=== PATIENT | female | born 1945 | race Caucasian/White ===

== ENCOUNTER → 2017-06-22 | Outpatient (CLI) | payer MEDICARE, BC ==
[~2017-06-22] MED LIST: CLOP75 PO; Crestor40 MG PO; HYDR-86; LOSA50 PO; POTCHL10ER PO; TRAM50 PO
[2017-06-22 14:49] LABS: Thyroid Stimulating Hormone 2.651 uIU/mL (0.360-4.800)
[2017-06-22 15:25] LABS: Troponin I <0.017 ng/mL (0.000-0.040)
== END | disposition home or self-care (01) ==
LOC: LAB EV 14:26
PROVIDERS: Physician Assistant Medical
DX: R00.2 Palpitations (principal)
CPT/HCPCS: 84443; 84484

== ENCOUNTER → 2017-10-11 | Outpatient (CLI) | payer MEDICARE, BC | END | disposition home or self-care (01) | LOC: LAB EV 14:36 → LAB SHORT 14:36 | DX: N30.01 Acute cystitis with hematuria (principal) | CPT/HCPCS: 87077; 87086; 87186 ==

== ENCOUNTER → 2018-07-11 | Outpatient (CLI) | payer MEDICARE, BC | END | disposition home or self-care (01) | LOC: LAB SHORT 08:25 → PLD 08:25 | DX: D48.5 Neoplasm of uncertain behavior of skin (principal) | CPT/HCPCS: 88305 ==

== ENCOUNTER → 2018-07-17 | Outpatient (CLI) | payer MEDICARE, BC ==
[2018-07-17 14:47] LABS: Anion Gap 9 mmol/L (6-16); Blood Urea Nitrogen 18 mg/dL (8-24); Bun/Creatinine Ratio 23.7 (12.0-20.0); CO2, Blood 29 mmol/L (21-32); Calcium, Blood 9.1 mg/dL (8.5-10.1); Chloride, Blood 92 mmol/L (98-108); Creatinine, Blood 0.76 mg/dL (0.40-1.00); Glomerular Filtration Rate >60 (60-); Glucose, Blood 95 mg/dL (70-99); Potassium, Blood 4.6 mmol/L (3.5-5.5); Sodium, Blood 130 mmol/L (136-145)
== END ==
LOC: LAB EV 14:37 → LAB SHORT 14:37
PROVIDERS: Emergency Medicine
DX: R60.9 Edema, unspecified (principal)
CPT/HCPCS: 80048

== ENCOUNTER → 2018-07-21 | Outpatient (CLI) | payer MEDICARE, BC ==
[2018-07-21 14:51] LABS: BASOPHILS ABSOLUTE AUTO 0.04 K/mm3 (0.00-0.23); BASOPHILS PERCENT AUTO 1 % (0-2); EOSINOPHILS ABSOLUTE AUTO 0.14 K/mm3 (0.00-0.68); EOSINOPHILS PERCENT AUTO 2 % (0-6); Hematocrit 33.8 % (33.0-51.0); Hemoglobin 11.3 g/dL (11.5-16.0); IMMATURE GRAN ABSOLUTE AUTO 0.03 K/mm3 (0.00-0.10); IMMATURE GRAN PERCENT AUTO 0 % (0-1); LYMPHOCYTES ABSOLUTE AUTO 1.43 K/mm3 (0.84-5.20); LYMPHOCYTES PERCENT AUTO 20 % (21-46); MONOCYTES ABSOLUTE AUTO 0.74 K/mm3 (0.16-1.47); MONOCYTES PERCENT AUTO 10 % (4-13); Mean Corpuscular HGB 29.1 pg (26.0-34.0); Mean Corpuscular HGB Conc 33.4 g/dL (31.5-36.5); Mean Corpuscular Volume 87 fL (80-100); Mean Platelet Volume 9.3 fL (9.1-12.4); NEUTROPHILS ABSOLUTE AUTO 4.82 K/mm3 (1.96-9.15); NEUTROPHILS PERCENT AUTO 67 % (41-73); Platelet Count 274 K/mm3 (150-400); RDW Standard Deviation 41.1 fL (35.1-46.3); Red Blood Cell Count 3.88 M/mm3 (3.80-5.20)
[2018-07-21 15:08] LABS: Alanine Aminotransfer (ALT/SGP 26 U/L (12-78); Albumin, Blood 4.4 g/dL (3.4-5.0); Albumin/Globulin Ratio 1.4 (0.8-1.8); Alk Phos 68 U/L (40-126); Anion Gap 7 mmol/L (6-16); Aspartate Aminotrans (AST/SGOT 25 U/L (12-37); Bilirubin, Total 0.6 mg/dL (0.1-1.0); Blood Urea Nitrogen 21 mg/dL (8-24); Bun/Creatinine Ratio 30.9 (12.0-20.0); CO2, Blood 30 mmol/L (21-32); Calcium, Blood 9.2 mg/dL (8.5-10.1); Chloride, Blood 88 mmol/L (98-108); Creatinine, Blood 0.68 mg/dL (0.40-1.00); Globulin, Blood 3.2 g/dL (2.2-4.0); Glomerular Filtration Rate >60 (60-); Glucose, Blood 100 mg/dL (70-99); Potassium, Blood 4.6 mmol/L (3.5-5.5); Sodium, Blood 125 mmol/L (136-145); Total Protein, Blood 7.6 g/dL (6.4-8.2)
== END | disposition home or self-care (01) ==
LOC: LAB SHORT 14:46 → LAB EV 14:46
PROVIDERS: Physician Assistant Surgical
DX: R60.9 Edema, unspecified (principal)
CPT/HCPCS: 80053; 83880; 85025; 85651

== ENCOUNTER 2019-02-04 15:53 | Emergency (ER) | payer MEDICARE, BC ==
[~2019-02-04] VITALS: Ht 157.5 cm; Wt 72.6 kg
[~2019-02-04 15:53] MED LIST changes: +ASPI81CH PO; +ATOR40TA PO; +FLUT1DIS5 INH; +FURO20 PO; +NEBI5 PO; +SPIR25 PO
[2019-02-04 16:30] LABS: BASOPHILS ABSOLUTE AUTO 0.04 K/mm3 (0.00-0.23); BASOPHILS PERCENT AUTO 1 % (0-2); EOSINOPHILS PERCENT AUTO 2 % (0-6); Hematocrit 38.2 % (33.0-51.0); Hemoglobin 12.5 g/dL (11.5-16.0); IMMATURE GRAN ABSOLUTE AUTO 0.02 K/mm3 (0.00-0.10); IMMATURE GRAN PERCENT AUTO 0 % (0-1); LYMPHOCYTES ABSOLUTE AUTO 1.66 K/mm3 (0.84-5.20); LYMPHOCYTES PERCENT AUTO 26 % (21-46); MONOCYTES ABSOLUTE AUTO 0.56 K/mm3 (0.16-1.47); MONOCYTES PERCENT AUTO 9 % (4-13); Mean Corpuscular HGB 28.9 pg (26.0-34.0); Mean Corpuscular HGB Conc 32.7 g/dL (31.5-36.5); Mean Corpuscular Volume 88 fL (80-100); Mean Platelet Volume 9.6 fL (9.1-12.4); NEUTROPHILS ABSOLUTE AUTO 4.08 K/mm3 (1.96-9.15); NEUTROPHILS PERCENT AUTO 63 % (41-73); Platelet Count 249 K/mm3 (150-400); RDW Standard Deviation 42.3 fL (35.1-46.3); Red Blood Cell Count 4.33 M/mm3 (3.80-5.20); White Blood Cell Count 6.46 K/mm3 (4.00-11.30)
[2019-02-04 16:49] LABS: Alanine Aminotransfer (ALT/SGP 25 U/L (12-78); Albumin, Blood 4.3 g/dL (3.4-5.0); Albumin/Globulin Ratio 1.3 (0.8-1.8); Alk Phos 68 U/L (50-136); Anion Gap 5 mmol/L (6-16); Aspartate Aminotrans (AST/SGOT 21 U/L (12-37); Bilirubin, Total 0.7 mg/dL (0.1-1.0); Blood Urea Nitrogen 15 mg/dL (8-24); Bun/Creatinine Ratio 23.7 (12.0-20.0); CO2, Blood 28 mmol/L (21-32); Calcium, Blood 9.6 mg/dL (8.5-10.1); Chloride, Blood 101 mmol/L (98-108); Creatinine, Blood 0.63 mg/dL (0.40-1.00); Globulin, Blood 3.2 g/dL (2.2-4.0); Glomerular Filtration Rate >60 (60-); Glucose, Blood 94 mg/dL (70-99); Potassium, Blood 3.8 mmol/L (3.5-5.5); Sodium, Blood 134 mmol/L (136-145); Total Protein, Blood 7.5 g/dL (6.4-8.2)
[2019-02-04 16:55] LABS: Troponin I <0.015 ng/mL (0.000-0.040)
[2019-02-04] MEDS ORDERED: MOTION RELIEF25 MG PO (16:58)
[2019-02-04 17:29] LABS: Source, Urine Clean Catch
[2019-02-04 17:37] LABS: Bilirubin, Urine Neg (Neg); Blood, Urine 1+ (Neg); Glucose Qualitative, Urine Neg (Neg); Ketones, Urine Neg (Neg); Leukocyte Esterase, Urine 1+ (Neg); Nitrite, Urine Neg (Neg); Protein, Urine Neg (Neg); Urobilinogen, Urine NORM (Normal)
[2019-02-04 17:48] LABS: Appearance, Urine Clear (Clear); Color, Urine Yellow (P-Yellow)
[2019-02-04 17:49] LABS: Bacteria Few /hpf; Red Blood Cells, Urine 0-2 /hpf (0-2); Squamous Epithelial Cells Rare /hpf (Few)
[2019-02-13] MEDS ORDERED: Aspir 8181 MG PO (09:45)
[2019-02-13] MEDS ORDERED: Norvasc5 MG PO (09:46)
[2019-02-13] MEDS ORDERED: METO25ER PO (09:47)
== END 2019-02-04 18:36 | disposition home or self-care (01) ==
LOC: ER 15:53
PROVIDERS: Emergency Medicine; Physician Assistant
DX: R42 Dizziness and giddiness (principal); H55.00 Unspecified nystagmus; Z88.0 Allergy status to penicillin; Z88.2 Allergy status to sulfonamides; Z88.5 Allergy status to narcotic agent; Z79.899 Other long term (current) drug therapy; Z79.82 Long term (current) use of aspirin
CPT/HCPCS: 70450; 80053; 81001; 83735; 84484; 85025; 87086; 93005; 93010; 99284-25

== ENCOUNTER 2019-02-20 09:20 | Day surgery (SDC) | payer MEDICARE, BC ==
[~2019-02-20] VITALS: Ht 157.5 cm; Wt 70.2 kg
[~2019-02-20 09:20] MED LIST changes: +Aspir 8181 MG PO; +METO25ER PO; +MOTION RELIEF25 MG PO; +Norvasc5 MG PO
--- NOTE | 2019-02-20 10:06 | NUR ---
02/20/19 1006 Socorro Zhang 1 ATTEMP , VEIN BLEW 2 ATTEMP AC GOOD :(
--- NOTE | 2019-02-20 13:19 | NUR ---
02/20/19 1319 Herb King DISCHARGE TEACHING REVIEWED WITH PT. PT TOLERATING PO FLUIDS WELL, VSS. ALL QUESTIONS ANSWERED.
== END 2019-02-20 11:50 | disposition home or self-care (01) ==
LOC: ORSCSDS 09:20
PROVIDERS: Internal Medicine Gastroenterology
PROC: 0DB68ZX Excision of Stomach, Via Natural or Artificial Opening Endoscopic, Diagnostic (ICD-10-PCS; principal; 2019-02-20 10:45)
PROC: 0DBN8ZX Excision of Sigmoid Colon, Via Natural or Artificial Opening Endoscopic, Diagnostic (ICD-10-PCS; principal; 2019-02-20 10:45)
PROC: 0DBL8ZX Excision of Transverse Colon, Via Natural or Artificial Opening Endoscopic, Diagnostic (ICD-10-PCS; principal; 2019-02-20 10:45)
PROC: 0DBH8ZX Excision of Cecum, Via Natural or Artificial Opening Endoscopic, Diagnostic (ICD-10-PCS; principal; 2019-02-20 10:45)
DX: R19.5 Other fecal abnormalities (principal); K29.50 Unspecified chronic gastritis without bleeding; B96.81 Helicobacter pylori [H. pylori] as the cause of diseases classified elsewhere; D12.0 Benign neoplasm of cecum; D12.3 Benign neoplasm of transverse colon; K63.5 Polyp of colon; K64.8 Other hemorrhoids; I10 Essential (primary) hypertension; J44.9 Chronic obstructive pulmonary disease, unspecified; Z86.73 Personal history of transient ischemic attack (TIA), and cerebral infarction without residual deficits; F32.9 Major depressive disorder, single episode, unspecified; Z79.82 Long term (current) use of aspirin; Z79.899 Other long term (current) drug therapy
CPT/HCPCS: 88305; 88342; J2250; J2704; J7120

== ENCOUNTER → 2019-03-20 | Outpatient (CLI) | payer MEDICARE, BC | END | disposition home or self-care (01) | LOC: LAB SHORT 08:23 → PLD 08:23 | DX: L57.8 Other skin changes due to chronic exposure to nonionizing radiation (principal); I78.1 Nevus, non-neoplastic; I96 Gangrene, not elsewhere classified | CPT/HCPCS: 88305 ==

== ENCOUNTER → 2019-04-19 | Outpatient (CLI) | payer MEDICARE, BC | END | disposition home or self-care (01) | LOC: LAB SHORT 13:21 → OLS 13:21 → LAB FUT 04-16 13:05 | DX: A04.8 Other specified bacterial intestinal infections (principal); B96.81 Helicobacter pylori [H. pylori] as the cause of diseases classified elsewhere | CPT/HCPCS: 87338 ==

== ENCOUNTER → 2019-05-18 | Outpatient (CLI) | payer MEDICARE, BC ==
[2019-05-18 15:27] LABS: Campylobacter Sp Not Detected (NOT DETECT)
[2019-05-18 15:28] LABS: Adenovirus F 40/41 Not Detected (NOT DETECT); Astrovirus Not Detected (NOT DETECT); Cryptosporidium Not Detected (NOT DETECT); Cyclospora Cayetanensis Not Detected (NOT DETECT); E. Coli O157 Not Detected (NOT DETECT); Entamoeba Histolytica Not Detected (NOT DETECT); Enteroaggregative E. coli-EAEC Not Detected (NOT DETECT); Enteropathogenic E. coli-EPEC Not Detected (NOT DETECT); Enterotoxigenic E. coli-ETEC Not Detected (NOT DETECT); Giardia Lamblia Not Detected (NOT DETECT); Norovirus GI/GII Not Detected (NOT DETECT); Plesiomonas Shigelloides Not Detected (NOT DETECT); Rotavirus A Not Detected (NOT DETECT); Salmonella Sp Not Detected (NOT DETECT); Sapovirus Not Detected (NOT DETECT); Shiga Toxin-prod E. coli-STEC Not Detected (NOT DETECT); Shigella/Enteroin E. coli-EIEC Not Detected (NOT DETECT); Vibrio Cholerae Not Detected (NOT DETECT); Vibrio Sp Not Detected (NOT DETECT); Yersinia Enterocolitica Not Detected (NOT DETECT)
== END | disposition home or self-care (01) ==
LOC: LAB 07:45 → LAB SHORT 07:45 → LAB FUT 05-17 10:40
PROVIDERS: Internal Medicine Gastroenterology
DX: R19.7 Diarrhea, unspecified (principal)
CPT/HCPCS: 0097U

== ENCOUNTER → 2019-06-07 | Outpatient (CLI) | payer MEDICARE, BC | END | disposition home or self-care (01) | LOC: OLS 22:30 → LAB SHORT 22:30 → EDSTATUS 06-06 16:15 → LAB FUT 06-06 16:15 | DX: R19.7 Diarrhea, unspecified (principal) | CPT/HCPCS: 87493 ==

== ENCOUNTER → 2019-07-22 | Outpatient (CLI) | payer MEDICARE, BC | END | disposition home or self-care (01) | LOC: LAB SHORT 06:45 → OLS 06:45 → LAB FUT 07-19 07:50 | DX: A04.8 Other specified bacterial intestinal infections (principal); B96.81 Helicobacter pylori [H. pylori] as the cause of diseases classified elsewhere | CPT/HCPCS: 87338 ==

== ENCOUNTER → 2019-08-25 | Outpatient (CLI) | payer MEDICARE, BC ==
[2019-08-25 10:06] LABS: Source, Urine Clean Catch
[2019-08-25 12:46] LABS: Appearance, Urine Clear (Clear); Bilirubin, Urine Neg (Neg); Blood, Urine Neg (Neg); Color, Urine Yellow (P-Yellow); Glucose Qualitative, Urine Neg (Neg); Ketones, Urine Neg (Neg); Leukocyte Esterase, Urine 1+ (Neg); Nitrite, Urine Neg (Neg); Protein, Urine Neg (Neg); Specific Gravity, Urine 1.005 (1.003-1.022); Urobilinogen, Urine NORM (Normal)
[2019-08-25 12:52] LABS: Bacteria Mod /hpf; Red Blood Cells, Urine 0-2 /hpf (0-2); Squamous Epithelial Cells Not Seen /hpf (Few)
== END | disposition home or self-care (01) ==
LOC: OLS 09:54 → LAB SHORT 09:54
PROVIDERS: Hospitalist
DX: R30.0 Dysuria (principal)
CPT/HCPCS: 81001; 87077; 87086; 87186

== ENCOUNTER → 2019-09-04 | Outpatient (CLI) | payer MEDICARE, BC | END | disposition home or self-care (01) | LOC: OLS 09:40 → LAB SHORT 09:40 → EDSTATUS 08-25 14:55 → LAB FUT 08-25 14:55 | DX: N39.0 Urinary tract infection, site not specified (principal) | CPT/HCPCS: 87086 ==

== ENCOUNTER → 2019-09-28 | Outpatient (CLI) | payer MEDICARE, BC | END | disposition home or self-care (01) | LOC: LAB SHORT 12:15 → LAB 12:15 → LAB FUT 09-25 15:50 → EDSTATUS 09-25 15:50 | DX: R19.7 Diarrhea, unspecified (principal) | CPT/HCPCS: 87015; 87045; 87046; 87205; 87493; 87899 ==

== ENCOUNTER → 2020-01-20 | Outpatient (CLI) | payer MEDICARE, BC | END | disposition home or self-care (01) | LOC: LAB SHORT 12:19 → LAB EV 12:19 | DX: N39.0 Urinary tract infection, site not specified (principal) | CPT/HCPCS: 87077; 87086; 87186 ==

== ENCOUNTER → 2020-01-23 | Outpatient (CLI) | payer MEDICARE, BC | END | disposition home or self-care (01) | LOC: LAB SHORT 15:03 → PLD 15:03 | DX: L57.0 Actinic keratosis (principal) | CPT/HCPCS: 88305 ==

== ENCOUNTER 2020-02-03 10:29 | Emergency (ER) | payer MEDICARE, BC ==
[~2020-02-03] VITALS: Ht 157.5 cm; Wt 68.0 kg
[2020-02-03 11:15] LABS: BASOPHILS ABSOLUTE AUTO 0.04 K/mm3 (0.00-0.23); BASOPHILS PERCENT AUTO 0 % (0-2); EOSINOPHILS ABSOLUTE AUTO 0.03 K/mm3 (0.00-0.68); EOSINOPHILS PERCENT AUTO 0 % (0-6); Hematocrit 34.8 % (33.0-51.0); Hemoglobin 11.9 g/dL (11.5-16.0); IMMATURE GRAN ABSOLUTE AUTO 0.11 K/mm3 (0.00-0.10); IMMATURE GRAN PERCENT AUTO 1 % (0-1); LYMPHOCYTES ABSOLUTE AUTO 0.95 K/mm3 (0.84-5.20); LYMPHOCYTES PERCENT AUTO 8 % (21-46); MONOCYTES ABSOLUTE AUTO 1.19 K/mm3 (0.16-1.47); MONOCYTES PERCENT AUTO 9 % (4-13); Mean Corpuscular HGB 29.8 pg (26.0-34.0); Mean Corpuscular HGB Conc 34.2 g/dL (31.5-36.5); Mean Corpuscular Volume 87 fL (80-100); NEUTROPHILS ABSOLUTE AUTO 10.31 K/mm3 (1.96-9.15); NEUTROPHILS PERCENT AUTO 82 % (41-73); Platelet Count 351 K/mm3 (150-400); RDW Coefficient Variation 12.3 % (11.7-14.2); RDW Standard Deviation 39.8 fL (35.1-46.3); Red Blood Cell Count 3.99 M/mm3 (3.80-5.20); White Blood Cell Count 12.63 K/mm3 (4.00-11.30)
[2020-02-03 11:49] LABS: Alanine Aminotransfer (ALT/SGP 71 U/L (12-78); Albumin, Blood 3.4 g/dL (3.4-5.0); Albumin/Globulin Ratio 0.8 (0.8-1.8); Alk Phos 177 U/L (50-136); Anion Gap 7 mmol/L (6-16); Aspartate Aminotrans (AST/SGOT 47 U/L (12-37); Bilirubin, Total 0.8 mg/dL (0.1-1.0); Blood Urea Nitrogen 12 mg/dL (8-24); Bun/Creatinine Ratio 21.4 (12.0-20.0); CO2, Blood 26 mmol/L (21-32); Calcium, Blood 9.3 mg/dL (8.5-10.1); Chloride, Blood 88 mmol/L (98-108); Creatinine, Blood 0.56 mg/dL (0.40-1.00); Globulin, Blood 4.5 g/dL (2.2-4.0); Glomerular Filtration Rate >60 (60-); Glucose, Blood 112 mg/dL (70-99); Potassium, Blood 4.3 mmol/L (3.5-5.5); Sodium, Blood 121 mmol/L (136-145); Total Protein, Blood 7.9 g/dL (6.4-8.2); Troponin I <0.015 ng/mL (0.000-0.040)
[2020-02-03] MEDS ORDERED: Cleocin HCl300 MG PO (14:45)
[2020-02-03] MEDS ORDERED: SACC250C PO (14:45)
[2020-02-03] MEDS ORDERED: Percocet 5-3251 EACH PO (14:45)
[2020-02-03] MEDS ORDERED: ONDA4ODT MM (14:45)
== END 2020-02-03 15:15 | disposition home or self-care (01) ==
LOC: ER 10:29
PROVIDERS: Physician Assistant
DX: K04.7 Periapical abscess without sinus (principal)
CPT/HCPCS: 36415; 70487; 71046; 80053; 84484; 85025; 93005; 93010; J1170; J2405; J7030; Q9967

== ENCOUNTER 2020-02-11 03:27 | Inpatient (IN) | payer MEDICARE, BC ==
[~2020-02-11] VITALS: Ht 167.6 cm; Wt 67.9 kg
[~2020-02-11 03:27] MED LIST changes: +Cleocin HCl300 MG PO; +ONDA4ODT MM; +Percocet 5-3251 EACH PO; +SACC250C PO
[2020-02-11 05:19] LABS: BASOPHILS ABSOLUTE AUTO 0.05 K/mm3 (0.00-0.23); BASOPHILS PERCENT AUTO 0 % (0-2); EOSINOPHILS ABSOLUTE AUTO 0.02 K/mm3 (0.00-0.68); EOSINOPHILS PERCENT AUTO 0 % (0-6); Hematocrit 34.9 % (33.0-51.0); Hemoglobin 11.8 g/dL (11.5-16.0); IMMATURE GRAN ABSOLUTE AUTO 0.49 K/mm3 (0.00-0.10); IMMATURE GRAN PERCENT AUTO 3 % (0-1); LYMPHOCYTES ABSOLUTE AUTO 0.99 K/mm3 (0.84-5.20); LYMPHOCYTES PERCENT AUTO 7 % (21-46); MONOCYTES ABSOLUTE AUTO 0.87 K/mm3 (0.16-1.47); MONOCYTES PERCENT AUTO 6 % (4-13); Mean Corpuscular HGB 29.1 pg (26.0-34.0); Mean Corpuscular HGB Conc 33.8 g/dL (31.5-36.5); Mean Corpuscular Volume 86 fL (80-100); Mean Platelet Volume 8.3 fL (9.1-12.4); NEUTROPHILS PERCENT AUTO 83 % (41-73); Platelet Count 562 K/mm3 (150-400); RDW Coefficient Variation 12.3 % (11.7-14.2); RDW Standard Deviation 39.3 fL (35.1-46.3); Red Blood Cell Count 4.05 M/mm3 (3.80-5.20); White Blood Cell Count 14.22 K/mm3 (4.00-11.30)
[2020-02-11 05:46] LABS: Alanine Aminotransfer (ALT/SGP 36 U/L (12-78); Albumin, Blood 3.4 g/dL (3.4-5.0); Albumin/Globulin Ratio 0.7 (0.8-1.8); Alk Phos 152 U/L (50-136); Anion Gap 9 mmol/L (6-16); Aspartate Aminotrans (AST/SGOT 38 U/L (12-37); Bilirubin, Total 0.9 mg/dL (0.1-1.0); Blood Urea Nitrogen 13 mg/dL (8-24); Bun/Creatinine Ratio 19.1 (12.0-20.0); CO2, Blood 27 mmol/L (21-32); Chloride, Blood 82 mmol/L (98-108); Creatinine, Blood 0.68 mg/dL (0.40-1.00); Globulin, Blood 4.6 g/dL (2.2-4.0); Glomerular Filtration Rate >60 (60-); Glucose, Blood 127 mg/dL (70-99); Potassium, Blood 4.6 mmol/L (3.5-5.5); Sodium, Blood 118 mmol/L (136-145)
[2020-02-11 10:30] LABS: Blood Urea Nitrogen 13 mg/dL (8-24); Bun/Creatinine Ratio 24.6 (12.0-20.0); CO2, Blood 27 mmol/L (21-32); Calcium, Blood 9.7 mg/dL (8.5-10.1); Chloride, Blood 83 mmol/L (98-108); Creatinine, Blood 0.53 mg/dL (0.40-1.00); Glomerular Filtration Rate >60 (60-); Glucose, Blood 112 mg/dL (70-99); Potassium, Blood 4.3 mmol/L (3.5-5.5)
[2020-02-11 10:31] LABS: Anion Gap 8 mmol/L (6-16); Sodium, Blood 118 mmol/L (136-145)
[2020-02-11 15:42] LABS: Anion Gap 8 mmol/L (6-16); Blood Urea Nitrogen 12 mg/dL (8-24); Bun/Creatinine Ratio 18.7 (12.0-20.0); CO2, Blood 26 mmol/L (21-32); Calcium, Blood 9.2 mg/dL (8.5-10.1); Chloride, Blood 87 mmol/L (98-108); Creatinine, Blood 0.64 mg/dL (0.40-1.00); Glomerular Filtration Rate >60 (60-); Glucose, Blood 96 mg/dL (70-99); Potassium, Blood 4.2 mmol/L (3.5-5.5); Sodium, Blood 121 mmol/L (136-145)
--- NOTE | 2020-02-11 19:39 | NUR ---
SHIFT SUMMARY: PATIENT ADMIT FROM ED THIS SHIFT. PT A&O; OCC CONFUSION; CALM AND COOPERATIVE WITH CARE. MEDICATED FOR L JAW PAIN PER EMAR. TELE IN PLACE; SR @ 67. REHYDRATION & NA+ REPLENISHMENT; IV ABX CONTINUING. REPORT GIVEN TO ONCOMING RN.
[2020-02-11 21:47] LABS: Anion Gap 8 mmol/L (6-16); Blood Urea Nitrogen 12 mg/dL (8-24); Bun/Creatinine Ratio 16.9 (12.0-20.0); CO2, Blood 25 mmol/L (21-32); Chloride, Blood 89 mmol/L (98-108); Creatinine, Blood 0.71 mg/dL (0.40-1.00); Glomerular Filtration Rate >60 (60-); Glucose, Blood 117 mg/dL (70-99); Potassium, Blood 4.2 mmol/L (3.5-5.5); Sodium, Blood 122 mmol/L (136-145)
[2020-02-12 03:45] LABS: BASOPHILS ABSOLUTE AUTO 0.04 K/mm3 (0.00-0.23); BASOPHILS PERCENT AUTO 0 % (0-2); EOSINOPHILS ABSOLUTE AUTO 0.12 K/mm3 (0.00-0.68); EOSINOPHILS PERCENT AUTO 1 % (0-6); Hematocrit 29.2 % (33.0-51.0); Hemoglobin 9.8 g/dL (11.5-16.0); IMMATURE GRAN ABSOLUTE AUTO 0.17 K/mm3 (0.00-0.10); IMMATURE GRAN PERCENT AUTO 2 % (0-1); LYMPHOCYTES ABSOLUTE AUTO 1.07 K/mm3 (0.84-5.20); LYMPHOCYTES PERCENT AUTO 10 % (21-46); MONOCYTES ABSOLUTE AUTO 0.99 K/mm3 (0.16-1.47); MONOCYTES PERCENT AUTO 9 % (4-13); Mean Corpuscular HGB 29.3 pg (26.0-34.0); Mean Corpuscular HGB Conc 33.6 g/dL (31.5-36.5); Mean Corpuscular Volume 87 fL (80-100); Mean Platelet Volume 8.2 fL (9.1-12.4); NEUTROPHILS ABSOLUTE AUTO 8.85 K/mm3 (1.96-9.15); NEUTROPHILS PERCENT AUTO 79 % (41-73); Platelet Count 485 K/mm3 (150-400); RDW Coefficient Variation 12.5 % (11.7-14.2); RDW Standard Deviation 40.1 fL (35.1-46.3); Red Blood Cell Count 3.34 M/mm3 (3.80-5.20); White Blood Cell Count 11.24 K/mm3 (4.00-11.30)
[2020-02-12 04:01] LABS: Anion Gap 5 mmol/L (6-16); Blood Urea Nitrogen 9 mg/dL (8-24); Bun/Creatinine Ratio 15.5 (12.0-20.0); CO2, Blood 26 mmol/L (21-32); Calcium, Blood 8.9 mg/dL (8.5-10.1); Chloride, Blood 94 mmol/L (98-108); Creatinine, Blood 0.58 mg/dL (0.40-1.00); Glomerular Filtration Rate >60 (60-); Glucose, Blood 107 mg/dL (70-99); Potassium, Blood 3.8 mmol/L (3.5-5.5); Sodium, Blood 125 mmol/L (136-145)
--- NOTE | 2020-02-12 06:33 | NUR ---
SHIFT SUMMARY AOX4. VSS. TELE NSR @69. ANSWERS ALL ORIENTATION QUESTIONS APPROPRIATE. DOES STATE WHEN SHE WAKES SHE FEELS DISORIENTED & FORGETS WHERE SHE'S AT. REPORTS "FUZZY" VISION. DENIES DIZZINESS OR PLASCENCIA. DENIES NAUSEA OR DYSPNEA. L JAW IS SWOLLEN, HOT TO TOUCH, TENDER & RED-PT STATES THE SWELLING HAS INCREASED FROM YESTERDAY SINCE IT IS NOW SWOLLEN UNDER CHIN. INSIDE L GUM LINE IS RED, SWOLLEN, & HAS SMALL AMOUNT YELLOW DRAINAGE. REPORTED 7-10/10 PAIN IN L JAW RADIATING UP TO L EAR & UNDER CHIN, MEDICATED 2X c PERCOCET PER ORDERS. THIS AM 3 HRS POST RECIEVING PERCOCET PT REPORTED HER PAIN WAS 7/10 & DIDNT THINK SHE COULD LAST UNTIL THE NEXT TIME PAIN MEDICATION WAS DUE. NOTIFIED DR REED & HE ORDERED IV TORADOL, GAVE MEDICATION & WILL REASSESS. CALL LIGHT IN REACH.
[2020-02-12 09:39] LABS: Anion Gap 8 mmol/L (6-16); Blood Urea Nitrogen 9 mg/dL (8-24); Bun/Creatinine Ratio 13.6 (12.0-20.0); CO2, Blood 26 mmol/L (21-32); Calcium, Blood 9.2 mg/dL (8.5-10.1); Chloride, Blood 94 mmol/L (98-108); Creatinine, Blood 0.66 mg/dL (0.40-1.00); Glomerular Filtration Rate >60 (60-); Glucose, Blood 111 mg/dL (70-99); Potassium, Blood 4.2 mmol/L (3.5-5.5); Sodium, Blood 128 mmol/L (136-145)
--- NOTE | 2020-02-12 14:33 | NUR ---
Patient is sitting up in bed and alert. Patient tells me about the story of her dental abscess and the difficult process she has gone through to get the help that she needs to deal with the infection. I ask patient if she would like to talk to our Patient Advocate and patient says that she like to do that. Patient admits to feeling scared and alone. I listen empathically, normalize patient's experience and provide pastoral assistant corporation counsel and prayer. Patient responds well and verbalizes appreciation for the time and care. Before I leave patient's rm, I vocera Patient Advocate Denisse Frank who agrees to come visit the patient at her earliest opportunity. I will continue to remain available to patient and family.
[2020-02-12 15:59] LABS: Anion Gap 9 mmol/L (6-16); Blood Urea Nitrogen 9 mg/dL (8-24); Bun/Creatinine Ratio 13.6 (12.0-20.0); CO2, Blood 24 mmol/L (21-32); Calcium, Blood 8.8 mg/dL (8.5-10.1); Chloride, Blood 96 mmol/L (98-108); Creatinine, Blood 0.66 mg/dL (0.40-1.00); Glomerular Filtration Rate >60 (60-); Glucose, Blood 99 mg/dL (70-99); Potassium, Blood 4.1 mmol/L (3.5-5.5); Sodium, Blood 129 mmol/L (136-145)
[2020-02-12 19:39] LABS: BASOPHILS ABSOLUTE AUTO 0.06 K/mm3 (0.00-0.23); BASOPHILS PERCENT AUTO 1 % (0-2); EOSINOPHILS ABSOLUTE AUTO 0.07 K/mm3 (0.00-0.68); EOSINOPHILS PERCENT AUTO 1 % (0-6); Hematocrit 28.7 % (33.0-51.0); Hemoglobin 9.6 g/dL (11.5-16.0); IMMATURE GRAN ABSOLUTE AUTO 0.19 K/mm3 (0.00-0.10); IMMATURE GRAN PERCENT AUTO 2 % (0-1); LYMPHOCYTES ABSOLUTE AUTO 1.31 K/mm3 (0.84-5.20); LYMPHOCYTES PERCENT AUTO 13 % (21-46); MONOCYTES ABSOLUTE AUTO 0.83 K/mm3 (0.16-1.47); MONOCYTES PERCENT AUTO 8 % (4-13); Mean Corpuscular HGB 29.4 pg (26.0-34.0); Mean Corpuscular HGB Conc 33.4 g/dL (31.5-36.5); Mean Corpuscular Volume 88 fL (80-100); Mean Platelet Volume 8.4 fL (9.1-12.4); NEUTROPHILS ABSOLUTE AUTO 7.89 K/mm3 (1.96-9.15); NEUTROPHILS PERCENT AUTO 76 % (41-73); Platelet Count 471 K/mm3 (150-400); RDW Coefficient Variation 12.7 % (11.7-14.2); RDW Standard Deviation 41.1 fL (35.1-46.3); Red Blood Cell Count 3.26 M/mm3 (3.80-5.20); White Blood Cell Count 10.35 K/mm3 (4.00-11.30)
--- NOTE | 2020-02-12 20:05 | NUR ---
SHIFT SUMMARY: PATIENT A&O; ANXIETY R/T MEDICAL CONDITION & PAIN; COOPERATIVE WITH CARE. I&D ON L MANDIBLE THIS SHIFT; PT TOLERATED WELL; ABSCESS CULTURE X2 SENT TO LAB. IV ABX CONTINUING. REPORT GIVEN TO ONCOMING RN.
[2020-02-13 05:47] LABS: Anion Gap 5 mmol/L (6-16); Blood Urea Nitrogen 6 mg/dL (8-24); CO2, Blood 26 mmol/L (21-32); Calcium, Blood 8.4 mg/dL (8.5-10.1); Chloride, Blood 100 mmol/L (98-108); Creatinine, Blood 0.55 mg/dL (0.40-1.00); Glomerular Filtration Rate >60 (60-); Glucose, Blood 88 mg/dL (70-99); Potassium, Blood 3.9 mmol/L (3.5-5.5); Sodium, Blood 131 mmol/L (136-145)
--- NOTE | 2020-02-13 08:03 | NUR ---
SHIFT SUMMARY AOX4. VSS. DENIES NAUSEA OR DYSPNEA. HAS 8/10 PAIN IN L JAW RADIATING TO UNDER CHIN FROM DENTAL ABCESS. MEDICATED 1X c PERCOCET & 3X c FENTANYL PER ORDERS, PAIN LEVEL BARELY DECREASES. THIS AM STATES THE FENTANYL DID NOT WORK OR EVEN TOUCH HER PAIN, I TRIED CONTACTING MD HOWEVER IT WAS SHIFT CHANGE. NOTIFIED ONCOMING NURSE PT REPORTS THE TORADOL SHE RECIEVED YESTERDAY REALLY HELPED HER PAIN DROP FROM A 10/10 TO A 0/10. L JAW & UNDER CHIN ARE VERY SWOLLEN, HOT, FIRM, TENDER TO TOUCH. PT HAD CULTURES DRAWN FROM JAW BY ENT MD YESTERDAY. PT HAS HAD A MODERATE AMOUNT YELLOW DRAINAGE COMING OUT OF L GUM LINE TONIGHT, WHICH IS MORE COMPARED TO PREVIOUS NIGHT. CALL LIGHT IN REACH.
--- NOTE | 2020-02-13 14:58 | NUR ---
I meet Patient Advocate, Denisse in the hallway outside patient's rm. She tells me that she is on her way to visit patient. I meet patient's grandson who is bedside and I introduce Denisse to patient and granson and then leave them to talk. I will continue to remain available to patient and family .
--- NOTE | 2020-02-13 18:00 | NUR ---
PT IS A/OX3, PLEASANT AND COOPERATIVE, THE PT DOES HAVE SOME SLIGHT ANXIETY, THE PT IS UP WITH MINIMAL ASSIST TO THE BATHROOM, THE PT WAS SEEN BY THE ENT THIS AFTERNOON, THE PT WAS MEDICATED FOR PAIN T/O THE DAY, THE PT AT ONE TIME REPORTED FEELING FUNNY AND JUMPY, HER RESTLESS LEG SYNDROME WAS ACTIVE, PERCOCET WAS GIVEN AT THAT TIME FOR PAIN AND HELPED TO REDUCE THE RESTLESS LEGS, THE PTS GUMS WERE BLEEDING THIS AFTERNOON, A STRERILE GAUZE WAS SPRAYED WITH AFRIN AND APPLIED TO THE AFFECTED AREA FOR APROX 30 MIN THEN REMOVED, THE BLEEDING STOPPED AFTER THE APPLICATION FOR NOW, PTS FAMILY WAS AT THE BEDSIDE FOR MOST OF THE DAY, CALL LIGHT IN REACH, WILL CONTINUE TO MONITOR FOR CHANGES
[2020-02-14 05:19] LABS: BASOPHILS ABSOLUTE AUTO 0.07 K/mm3 (0.00-0.23); BASOPHILS PERCENT AUTO 1 % (0-2); EOSINOPHILS PERCENT AUTO 1 % (0-6); Hematocrit 32.5 % (33.0-51.0); Hemoglobin 10.6 g/dL (11.5-16.0); IMMATURE GRAN ABSOLUTE AUTO 0.12 K/mm3 (0.00-0.10); IMMATURE GRAN PERCENT AUTO 1 % (0-1); LYMPHOCYTES ABSOLUTE AUTO 1.13 K/mm3 (0.84-5.20); LYMPHOCYTES PERCENT AUTO 8 % (21-46); MONOCYTES ABSOLUTE AUTO 1.06 K/mm3 (0.16-1.47); MONOCYTES PERCENT AUTO 8 % (4-13); Mean Corpuscular HGB 29.2 pg (26.0-34.0); Mean Corpuscular HGB Conc 32.6 g/dL (31.5-36.5); Mean Corpuscular Volume 90 fL (80-100); Mean Platelet Volume 8.4 fL (9.1-12.4); NEUTROPHILS ABSOLUTE AUTO 11.55 K/mm3 (1.96-9.15); NEUTROPHILS PERCENT AUTO 82 % (41-73); Platelet Count 499 K/mm3 (150-400); RDW Standard Deviation 42.5 fL (35.1-46.3); Red Blood Cell Count 3.63 M/mm3 (3.80-5.20); White Blood Cell Count 14.03 K/mm3 (4.00-11.30)
[2020-02-14 05:38] LABS: Anion Gap 7 mmol/L (6-16); Blood Urea Nitrogen 6 mg/dL (8-24); Bun/Creatinine Ratio 8.7 (12.0-20.0); CO2, Blood 25 mmol/L (21-32); Calcium, Blood 9.2 mg/dL (8.5-10.1); Chloride, Blood 101 mmol/L (98-108); Creatinine, Blood 0.69 mg/dL (0.40-1.00); Glomerular Filtration Rate >60 (60-); Glucose, Blood 110 mg/dL (70-99); Potassium, Blood 3.8 mmol/L (3.5-5.5); Sodium, Blood 133 mmol/L (136-145)
--- NOTE | 2020-02-14 06:11 | NUR ---
SHIFT SUMMARY: VSS. AFEB. AAOX4. ABLE TO COMMUNICATE NEEDS. CONT W/SWELLING AND PAIN IN L MANDIBLE. PT STATES SHE IS UNABLE TO EXPRESS L MANDIBLE ABSCESS INDEPENDENTLY. WANTED TO WAIT FOR PAIN MEDS TO KICK IN BEFORE ALLOWING ASSISTANCE BUT FELL ASLEEP BEFORE THIS AUTHOR WAS ABLE TO ASSIST PT. REPORTING GOOD PAIN MANAGEMENT W/INCREASED FREQUENCY OF ANALGESIC. IV ABT INFUSED ORDERED. PT UP AMB IN ROOM W/SBA. PERFORMING ORAL CARE AND SUCTION OF ABSCESS DRAINAGE INDEPENDENTLY. WILL CONT TO MONITOR PT.
--- NOTE | 2020-02-14 14:52 | NUR ---
Spriitual care visit conducted. Patient's rm is dark, patient is sleeping and her grandson is present. He tells me that she needs her sleep, they appreciate being checked on and then asked if I could come by another time. I will continue to remain available to patient and family.
--- NOTE | 2020-02-14 18:47 | NUR ---
SHIFT SUMMARY PT A/O X3 AND SBA/IND IN THE ROOM. SWELLING AND PAIN IN L JAW DUE TO DENTAL ABSCESS. ENT DRAINED THE ABSCESS TODAY. PT GIVEN PERCOCET PRIOR TO PROCEDURE WELL 25 MCG OF FENTANYL AND TOLERATED THE PROCEDURE WELL. STARTED ON VANCO TODAY. Q4 PERCOCET FOR PAIN. PT PERFORMS ORAL CARE AND SUCTION IND. GRANDSON AT BEDSIDE FOR THE MAJORITY OF THE DAY. VSS. CALL LIGHT IN REACH.
--- NOTE | 2020-02-15 03:28 | NUR ---
PT STATED THAT SHE HAS PAIN AT IV SITE, NURSE NOTIFIED
--- NOTE | 2020-02-15 03:59 | NUR ---
SHIFT SUMMARY: VSS. AFEB. AAOX4. ABLE TO COMMUNICATE NEEDS. MINOR SWELLING OBSERVED ON LEFT LOWER JAW. 2 WHITE POCKETS OBSERVED ON GUM LINE. PT REPORTS GREATLY IMPROVED PAIN. ANALGESICS X 2 TONIGHT. PERFORMS ORAL CARE AND SUCTION INDEPENDENTLY. PT APPEARS TO BE SLEEPING WELL MOST OF THE NIGHT. MED BM, CONSTIPATION RESOLVED FOR NOW. IV ABT INFUSED ORDERED. NO ACUTE CONCERNS AT THIS TIME.
[2020-02-15 05:24] LABS: BASOPHILS ABSOLUTE AUTO 0.01 K/mm3 (0.00-0.23); BASOPHILS PERCENT AUTO 0 % (0-2); EOSINOPHILS PERCENT AUTO 0 % (0-6); Hematocrit 30.4 % (33.0-51.0); Hemoglobin 9.9 g/dL (11.5-16.0); IMMATURE GRAN ABSOLUTE AUTO 0.07 K/mm3 (0.00-0.10); IMMATURE GRAN PERCENT AUTO 1 % (0-1); LYMPHOCYTES ABSOLUTE AUTO 0.61 K/mm3 (0.84-5.20); LYMPHOCYTES PERCENT AUTO 7 % (21-46); MONOCYTES ABSOLUTE AUTO 0.04 K/mm3 (0.16-1.47); MONOCYTES PERCENT AUTO 1 % (4-13); Mean Corpuscular HGB 28.9 pg (26.0-34.0); Mean Corpuscular HGB Conc 32.6 g/dL (31.5-36.5); Mean Corpuscular Volume 89 fL (80-100); Mean Platelet Volume 8.5 fL (9.1-12.4); NEUTROPHILS ABSOLUTE AUTO 7.95 K/mm3 (1.96-9.15); NEUTROPHILS PERCENT AUTO 92 % (41-73); Platelet Count 435 K/mm3 (150-400); RDW Standard Deviation 42.4 fL (35.1-46.3); Red Blood Cell Count 3.42 M/mm3 (3.80-5.20); White Blood Cell Count 8.68 K/mm3 (4.00-11.30)
[2020-02-15 05:42] LABS: Anion Gap 7 mmol/L (6-16); Blood Urea Nitrogen 8 mg/dL (8-24); Bun/Creatinine Ratio 10.7 (12.0-20.0); CO2, Blood 26 mmol/L (21-32); Chloride, Blood 97 mmol/L (98-108); Creatinine, Blood 0.75 mg/dL (0.40-1.00); Glomerular Filtration Rate >60 (60-); Glucose, Blood 160 mg/dL (70-99); Sodium, Blood 130 mmol/L (136-145)
--- NOTE | 2020-02-15 18:07 | NUR ---
PATIENT IS ALERT AND ORIENTED AND COOPERATIVE WITH CARE. PATIENT IS ANXIOUS AND MAKES HER NEEDS KNOWN. THE PATIENT'S GRANDSON WAS AT THE BEDSIDE FOR MOST OF THE DAY. PATIENT C/O JAW PAIN, CONTROLLED WITH PERCOCET. DR. STROUD WAS IN TO SEE THE PATIENT TODAY AND EXPLAINED THAT THERE IS STILL PUS PRESENT IN THE ABSCESS BUT THAT IT LOOKS MUCH BETTER TODAY AND PREVIOUS DAYS. DR. CHINO WILL TAKE OVER ENT THIS WEEKEND. DR. STROUD TOLD THE PATIENT THAT HE WOULD BE BACK TUESDAY AND CHECK IN ON HER PROGRESS. A CONSULT TO DR. BUTTS WAS CALLED IN TODAY. WILL CONTINUE TO MONITOR.
[2020-02-16 05:36] LABS: BASOPHILS ABSOLUTE AUTO 0.01 K/mm3 (0.00-0.23); BASOPHILS PERCENT AUTO 0 % (0-2); EOSINOPHILS PERCENT AUTO 0 % (0-6); Hematocrit 27.7 % (33.0-51.0); Hemoglobin 9.3 g/dL (11.5-16.0); IMMATURE GRAN ABSOLUTE AUTO 0.11 K/mm3 (0.00-0.10); IMMATURE GRAN PERCENT AUTO 1 % (0-1); LYMPHOCYTES ABSOLUTE AUTO 0.92 K/mm3 (0.84-5.20); LYMPHOCYTES PERCENT AUTO 9 % (21-46); MONOCYTES ABSOLUTE AUTO 0.63 K/mm3 (0.16-1.47); MONOCYTES PERCENT AUTO 6 % (4-13); Mean Corpuscular HGB 29.5 pg (26.0-34.0); Mean Corpuscular HGB Conc 33.6 g/dL (31.5-36.5); Mean Corpuscular Volume 88 fL (80-100); Mean Platelet Volume 8.7 fL (9.1-12.4); NEUTROPHILS ABSOLUTE AUTO 9.01 K/mm3 (1.96-9.15); NEUTROPHILS PERCENT AUTO 84 % (41-73); Platelet Count 416 K/mm3 (150-400); RDW Coefficient Variation 13.2 % (11.7-14.2); RDW Standard Deviation 42.8 fL (35.1-46.3); Red Blood Cell Count 3.15 M/mm3 (3.80-5.20); White Blood Cell Count 10.68 K/mm3 (4.00-11.30)
--- NOTE | 2020-02-16 05:46 | NUR ---
HELP DESK ASSISTANT SUMMARY PT WAS PLEASANT AND COOPERATIVE W CARE AXO X4. PT REPORTED JAW PAIN BUT DENIED HER NIGHT TIME MOUTH WASH. PT RESTING W CALL LIGHT WITHIN REACH.
[2020-02-16 06:03] LABS: Anion Gap 8 mmol/L (6-16); Blood Urea Nitrogen 16 mg/dL (8-24); Bun/Creatinine Ratio 22.3 (12.0-20.0); CO2, Blood 27 mmol/L (21-32); Calcium, Blood 8.9 mg/dL (8.5-10.1); Chloride, Blood 96 mmol/L (98-108); Creatinine, Blood 0.72 mg/dL (0.40-1.00); Glomerular Filtration Rate >60 (60-); Glucose, Blood 134 mg/dL (70-99); Potassium, Blood 3.6 mmol/L (3.5-5.5); Sodium, Blood 131 mmol/L (136-145)
--- NOTE | 2020-02-16 18:02 | NUR ---
PATIENT IS ALERT AND ORIENTED AND COOPERATIVE WITH CARE. PATIENT IS ASKING FOR HOME HEALTH UPON DISCHARGE. NO NEW CHANGES WITH THE PATIENT TODAY. COMPLAINS OF PAIN IN HER LEFT JAW, TREATED PER EMAR. WILL CONTINUE TO MONITOR
[2020-02-17 05:19] LABS: Anion Gap 7 mmol/L (6-16); Blood Urea Nitrogen 17 mg/dL (8-24); CO2, Blood 27 mmol/L (21-32); Calcium, Blood 8.6 mg/dL (8.5-10.1); Chloride, Blood 98 mmol/L (98-108); Creatinine, Blood 0.68 mg/dL (0.40-1.00); Glomerular Filtration Rate >60 (60-); Glucose, Blood 88 mg/dL (70-99); Potassium, Blood 3.4 mmol/L (3.5-5.5); Sodium, Blood 132 mmol/L (136-145)
--- NOTE | 2020-02-17 06:13 | NUR ---
SHIFT SUMMARY ADMITTED FOR LEFT JAW ABSCESS. FULL CODE. PLAN IS FOR CONSULT COOPER BUTTS AND ELIZABETH TO ROUND ON PT TUESDAY. HOWEVER IF SWELLING OR PAIN WORSENS, DR CHINO MAY BE CALLED THIS WEEKEND TO DRAIN THE ABSCESS. SHE HOPES TO DC W/HH. SHE DID REQUEST PAIN MEDS THIS SHIFT. I DO NOTE THAT THIS PT HAS ANXIETY AND EXPERIENCES EPISODES OF IT. IV ANTIBIOTICS ARE SCHEDULED.
--- NOTE | 2020-02-17 07:35 | NUR ---
ASSUMED CARE: PT SITTING UPRIGHT IN BED, TALKING TO STAFF. LEFT JAW SWELLING NOTED. PT DENIES NEEDS OR CONCERNS AT THIS TIME.
--- NOTE | 2020-02-17 14:58 | NUR ---
DR GUTIERREZ AWARE OF PT'S CT RESULTS. STATES SHE HAS CONTACTED DR CHINO WHO IS PLANNING TO COME SEE PT THIS AFTERNOON. PT REMAINS NPO AT THIS TIME IN CASE HE WANTS TO DRAIN SITE
--- NOTE | 2020-02-17 16:54 | NUR ---
DR CHINO CAME TO SEE PT. PT WAS GIVEN 50MCG OF FENTANYL AND 2 PERCOCET PRIOR TO PROCEDURE. INJECTED SITE WITH 6MLS OF LIDOCAINE. SITE RITE WAS USED TO ATTEMPT TO VISUALIZE POCKETS BUT NO DRAINAGE WAS REMOVED. STATED HE WAS GOING TO DISCUSS WITH DR STROUD AND PT MAY NEED TO HAVE SURGERY IN AM. WARM COMPRESS PROVIDED TO PT. FAMILY AT BEDSIDE. COAL SAMPLE TESTER AWARE
--- NOTE | 2020-02-17 18:25 | NUR ---
SHIFT SUMMARY: DR CHINO ATTEMPTED TO DRAIN ABCESS THIS AFTERNOON WITH NO DRAINAGE PULLED. STATES HE WILL SPEAK WITH DR STROUD TO DETERMINE IF SURGERY WILL HAPPEN IN AM. DISCUSSED WITH DR GUTIERREZ. PLAN IS FOR NPO AT AR IN CASE SURGERY WILL OCCUR. MEDICATED FREQUENTLY FOR PAIN. NO FURTHER NEEDS OR CONCERNS.
--- NOTE | 2020-02-17 18:48 | NUR ---
THIS RN REVIEWED ADMINISTRATION RECORD FOR PERCOCET AND TYLENOL AND IT APPEARS THAT PT HAS RECIEVED MORE THAN THE 4000MG LIMIT FOR TYLENOL FOR LAST FEW DAYS. CALL TO DR GUTIERREZ AND MADE EFM AWARE OF THIS. MEDICATION CHANGES MADE FOR PAIN MANAGEMENT
--- NOTE | 2020-02-18 01:46 | NUR ---
PT APPEARS TO BE RESTING COMFORTABLY IN BED WITH CALL LIGHT IN REACH AT THIS TIME. HAND-OFF REPORT GIVEN TO MARYSE ORTA.
--- NOTE | 2020-02-18 03:43 | NUR ---
Patient in 03/08 extremely severe pain and very tearful. Per her description, she was taking 2 Roxycodone every 4-6 hours at home which was keeping her pain at a more tolerable level. Patient's understanding is that her pain medication regimen was changed this evening due to the excessive tylenol level she was receiving with percocet. Will call night hospitalist to discuss situation and continue close monitoring.
[2020-02-18 06:31] LABS: Alanine Aminotransfer (ALT/SGP 65 U/L (12-78); Albumin, Blood 2.7 g/dL (3.4-5.0); Albumin/Globulin Ratio 0.8 (0.8-1.8); Alk Phos 153 U/L (50-136); Anion Gap 6 mmol/L (6-16); Aspartate Aminotrans (AST/SGOT 42 U/L (12-37); Bilirubin, Total 0.6 mg/dL (0.1-1.0); Blood Urea Nitrogen 10 mg/dL (8-24); Bun/Creatinine Ratio 17.5 (12.0-20.0); CO2, Blood 28 mmol/L (21-32); Chloride, Blood 100 mmol/L (98-108); Creatinine, Blood 0.57 mg/dL (0.40-1.00); Globulin, Blood 3.5 g/dL (2.2-4.0); Glomerular Filtration Rate >60 (60-); Glucose, Blood 91 mg/dL (70-99); Potassium, Blood 3.7 mmol/L (3.5-5.5); Sodium, Blood 134 mmol/L (136-145); Total Protein, Blood 6.2 g/dL (6.4-8.2)
--- NOTE | 2020-02-18 08:21 | NUR ---
LIQUOR BLENDER SUMMARY assumed care at 0240. Patient extremely painful and anxious. As noted earlier, this was her main concern. New orders for medication changes made after notifying MD of patient complaints. After indorming patient of call to MD, Patient then stated she wasn't actually sure of current regimine at home, and then admitted that she has a pain contract with her PCP. Oncoming RN informed
--- NOTE | 2020-02-18 14:55 | NUR ---
PT TRANSFERED TO [facility]GED WITH [facility] FROM [facility]. History, Chart, Medications and Allergies reviewed before start of procedure. Lungs clear T/O to Auscultation. Patient confirms NPO status and agrees with scheduled surgery. Pre-Op teaching done. Pt verbalizes understanding.
--- NOTE | 2020-02-18 15:16 | NUR ---
Patient's grandson, Bishnu, is in the hallway outside of patient's rm. He catches me up on the activities over the weekend and on the procedure that patient will be headed into in less than an hour. I then go in and conduct a short visit with patient. Patient tells me how nervous she is about the procedure so I normalize patient's concerns, reinforce helpful ways of approaching this matter and provide therapeutic listening and prayer. Patient responds well and shows signs of improved peace and reduced stress. I will continue to remain available to patient and family.
--- NOTE | 2020-02-18 18:00 | NUR ---
PATIENT HAD I&D ON MOUTH THIS AFTERNOON. SHE RETURNED TO ROOM IN MUCH PAIN. 1MG IV DILAUDID ADMINISTERED PER EMAR WITH LITTLE EFFECTIVENESS. SWITCHED OUT GAUZED IN MOUTH WITH A TEA BAG, PER DR GERARD SUGGESTION. PATIENT HAS BEDSIDE SUCTION IN REACH AND IS USING NEEDED. IV FLUIDS CONTINUE TO RUN PER EMAR ALONG WITH IV ABX WITHOUT S/SX OF ADVERSE REACTIONS NOTED OR REPORTED. BP HAS BEEN ELEVATED AND TRENDING UPWARD SINCE RETURNING FROM OR; PATIENT UNABLE TO TAKE SCHEDULED COREG D/T ORAL PAIN. CALLED DR LESLIE TO REQUEST SOMETHING ELSE TO TREAT THE PATIENTS IV; SHE STATED SHE WOULD PLACE NEW ORDERS. MONITORING PATIENT CLOSELY INCLUDING VITALS.
--- NOTE | 2020-02-18 18:04 | NUR ---
ROOM, CALL LIGHT IN REACH.
--- NOTE | 2020-02-18 19:48 | NUR ---
ASSUMED CARE. AOX3, MUBLED SPEECH DUE TO GAUZE IN MOUTH. SHE HAS BEEN CHANGING OUT HER GAUZE OFTEN, OR USING TEA BAGS PER DOCTORS ORDERS. GRAND-SON IS AT BEDSIDE. LUNGS CLEAR BUT DIMINISHED IN BASES. SWELLING TO LEFT SIDE OF JAW AND WRAPPING UNDER CHIN. SURGICAL INCISION UNDERNEATH CHIN WITH REILLY DRAINAGE, 2 STITCHES, OPEN TO AIR. DRAIN IS DRAINING SEROUSSANGUOUS INTO A CATCH NECK WRAP GAUZE. CHANGED OUT GAUZE IN NECK WRAP. WASHED SITE WITH WOUND CLEANSER. WASHED CHIN. MEDICATED FOR PAIN. VS WNL. WITHHELD ALL PO MEDS THE PATIENT STATES SHE CAN NOT SWALLOW RIGHT NOW. SUCTION IS AT BEDSIDE AND PATIENT IS USING IT. CALL LIGHT IN REACH, GRANDSON HEADING HOME.
[2020-02-19 02:31] LABS: Anion Gap 7 mmol/L (6-16); Blood Urea Nitrogen 8 mg/dL (8-24); Bun/Creatinine Ratio 16.1 (12.0-20.0); CO2, Blood 28 mmol/L (21-32); Calcium, Blood 9.1 mg/dL (8.5-10.1); Chloride, Blood 96 mmol/L (98-108); Glomerular Filtration Rate >60 (60-); Glucose, Blood 154 mg/dL (70-99); Potassium, Blood 4.2 mmol/L (3.5-5.5); Sodium, Blood 131 mmol/L (136-145)
[2020-02-19 02:33] LABS: BASOPHILS ABSOLUTE AUTO 0.01 K/mm3 (0.00-0.23); BASOPHILS PERCENT AUTO 0 % (0-2); EOSINOPHILS PERCENT AUTO 0 % (0-6); Hematocrit 32.6 % (33.0-51.0); Hemoglobin 10.5 g/dL (11.5-16.0); IMMATURE GRAN ABSOLUTE AUTO 0.08 K/mm3 (0.00-0.10); IMMATURE GRAN PERCENT AUTO 1 % (0-1); LYMPHOCYTES ABSOLUTE AUTO 0.39 K/mm3 (0.84-5.20); LYMPHOCYTES PERCENT AUTO 4 % (21-46); MONOCYTES ABSOLUTE AUTO 0.08 K/mm3 (0.16-1.47); MONOCYTES PERCENT AUTO 1 % (4-13); Mean Corpuscular HGB 28.9 pg (26.0-34.0); Mean Corpuscular HGB Conc 32.2 g/dL (31.5-36.5); Mean Corpuscular Volume 90 fL (80-100); Mean Platelet Volume 8.8 fL (9.1-12.4); NEUTROPHILS ABSOLUTE AUTO 8.57 K/mm3 (1.96-9.15); NEUTROPHILS PERCENT AUTO 94 % (41-73); Platelet Count 406 K/mm3 (150-400); RDW Coefficient Variation 13.4 % (11.7-14.2); RDW Standard Deviation 44.4 fL (35.1-46.3); Red Blood Cell Count 3.63 M/mm3 (3.80-5.20); White Blood Cell Count 9.13 K/mm3 (4.00-11.30)
[2020-02-19 02:35] LABS: Vancomycin, Trough 8.8 ug/mL (5.0-10.0)
--- NOTE | 2020-02-19 06:03 | NUR ---
SHIFT SUMMARY: DRAINAGE TUBE TO BOTTOM OF CHIN DRAINING SEROUSSANGUOUS DRAINGE. CHANGED GAUZE X2 40% SATURATION. SWELLING TO LEFT SIDE OF FACE HAS DECREASED. SHE IS ABLE TO TALK A LITTLE EASIER THEN START OF SHIFT. SHE HAS BEEN CHANGING OUT GAUZE IN MOUTH FREQUENTLY. SHE DID NOT WANT TO SWALLOW ANYTHING TONIGHT THEREFORE WE KEPT HER NPO. SHE USES WATER TO RINSE OUT HER MOUTH AND SHE SUCTIONS IT OUT. ALL PO MEDS WERE WITHHELD. PAIN CONTROLED WITH DILUDID. IV CONTINUES TO INFUSE. VS WITH ELEVATED BP THIS AM. GAVE LABETALOL. WILL RECHECK BP. NO OTHER CHANGES TO NOTE. CALL LIGHT IN REACH.
--- NOTE | 2020-02-19 17:29 | NUR ---
PATIENT HAS HAD A PRETTY GOOD SHIFT TODAY, FEELING MUCH BETTER THAN YESTERDAY. THE DRAINAGE FROM THE REILLY DRAIN HAS SLOWED DOWN SIGNIFICANTLY, THE PACKING/DRESSING CHANGED THIS AFTERNOON. PATIENT REQUESTED PAIN MEDICATION ONLY TWICE THIS SHIFT. SHE CONTINUES ON IV ABX WITHOUT S/SX OF ADVERSE REACTIONS NOTED OR REPORTED. SHE DID QUITE A BIT OF WALKING IN HER ROOM, USING FWW, WITH HER GRANDSON AT HER SIDE. SHE CALLS APPROPRIATELY FOR STAFF ASSIST. WILL CONTINUE TO MONITOR AND PROVIDE CARE NEEDED.
--- NOTE | 2020-02-19 20:07 | NUR ---
ASSUMED CARE. KAYLEE IS DOING VERY WELL, BEEN UP WALKING TODAY. SHE STATES HER PAIN IS MUCH BETTER. SHE IS ABLE TO EAT A LITTLE AND SWALLOW HER MEDS. STILL IS USING SUCTION OCCATIONALLY. LEFT SIDE OF FACE SWELLING AT JAW LINE AND UNDER. REILLY DRAINAGE TUBE DRAINING SMALL AMOUNTS OF SEROUS SANGUOUS DRAINAGE. VS WNL. IV INFUSING WELL. MEDICATED FOR PAIN. CALL LIGHT IN REACH.
[2020-02-20 03:25] LABS: BASOPHILS ABSOLUTE AUTO 0.01 K/mm3 (0.00-0.23); BASOPHILS PERCENT AUTO 0 % (0-2); EOSINOPHILS PERCENT AUTO 0 % (0-6); Hematocrit 28.7 % (33.0-51.0); Hemoglobin 9.2 g/dL (11.5-16.0); IMMATURE GRAN ABSOLUTE AUTO 0.07 K/mm3 (0.00-0.10); IMMATURE GRAN PERCENT AUTO 1 % (0-1); LYMPHOCYTES PERCENT AUTO 14 % (21-46); MONOCYTES ABSOLUTE AUTO 0.79 K/mm3 (0.16-1.47); MONOCYTES PERCENT AUTO 9 % (4-13); Mean Corpuscular HGB 28.9 pg (26.0-34.0); Mean Corpuscular HGB Conc 32.1 g/dL (31.5-36.5); Mean Corpuscular Volume 90 fL (80-100); Mean Platelet Volume 8.7 fL (9.1-12.4); NEUTROPHILS ABSOLUTE AUTO 6.97 K/mm3 (1.96-9.15); NEUTROPHILS PERCENT AUTO 76 % (41-73); Platelet Count 384 K/mm3 (150-400); RDW Coefficient Variation 13.7 % (11.7-14.2); RDW Standard Deviation 45.1 fL (35.1-46.3); Red Blood Cell Count 3.18 M/mm3 (3.80-5.20); White Blood Cell Count 9.14 K/mm3 (4.00-11.30)
[2020-02-20 03:40] LABS: Anion Gap 5 mmol/L (6-16); Blood Urea Nitrogen 12 mg/dL (8-24); Bun/Creatinine Ratio 22.5 (12.0-20.0); CO2, Blood 27 mmol/L (21-32); Chloride, Blood 103 mmol/L (98-108); Creatinine, Blood 0.53 mg/dL (0.40-1.00); Glomerular Filtration Rate >60 (60-); Glucose, Blood 131 mg/dL (70-99); Potassium, Blood 3.9 mmol/L (3.5-5.5); Sodium, Blood 135 mmol/L (136-145)
--- NOTE | 2020-02-20 05:05 | NUR ---
SHIFT SUMMARY: KAYLEE DID WELL TONIGHT. ABLE TO GET TO AND FROM THE BSC. PAIN HAS BEEN WELL CONTROLLED WITH DILUDID. ONLY MEDICATED X3 THIS SHIFT. DRAINAGE DECREASED TO SMALL AMOUNTS, HAVE NOT NEEDED TO CHANGE GAUZE OUT. REILLY DRAIN STILL IN PLACE AND WORKING. SWELLING TO LEFT SIDE JAW LINE PRESENT BUT DECREASED FROM PREVIOUS DAY. WAS ABLE TO TAKE HER PO MEDICATIONS AND DRINK FLUIDS. VS WNL, AFEBRILE. IV CONTIUES TO INFUSE. NO ACUTE CHANGES TO REPORT.
--- NOTE | 2020-02-20 11:09 | NUR ---
DRESSING TO CHIN CHANGED OF MODERATE AMOUNT OF RED TINGED 4X4. PATIENT TOLERATED WELL.
--- NOTE | 2020-02-20 11:17 | NUR ---
PER OK TO Yvette WILSON PATIENT DOES NOT TAKE AND HAS BEEN REFUSING.
--- NOTE | 2020-02-20 16:35 | NUR ---
ALERT. ORIENTED. HIGH ANXIETY, BUT FEELING LITTLE BETTER [employer] ALANA ADVISED HER THAT HER INSURANCE WOULD PAY FOR HH OR REHAB. AT THIS TIME PATIENT IS RESTING. PER TO ORDER A SLEEP AID FOR TONIGHT. DRESSING TO CHIN DRAIN WAS CHANGED X ONCE TODAY. GOOD RELIEF FROM PAIN WITH PAIN MEDS. IV INFUSING AND INTERMITTENT ANTIBIOTIC ORDERED. ENT WAS IN TO SEE THIS AM AND STS WILL SEE HER TOMORROW. TELE ON AND PER TECH SR IN 'S. MARLEN
--- NOTE | 2020-02-20 19:20 | NUR ---
ASSUMED CARE. KAYLEE HAS HAD A FRUSTRATING DAY SHE SAID. SHE HAS BEEN STRESSED ABOUT HER HOME AND HOW SHE WILL GET HELP FOR WHEN SHE DISCHARGES. HER GRANDSON IS LEAVING SOON. AND SOME OTHER PERSONAL THINGS THAT HAVE OCCURED RECENTLY. WE DECIDED TO ALLOW FOR A NON-STRESSFUL NIGHT. ENCOURAGED HER TO GET SOME REST, WILL GIVE HER THE ORDERED SLEEPING PILL. PAIN IS DOING OK AT THIS TIME. DRAINAGE FROM REILLY TUBE IS SMALL AMOUNT SEROUS SANGUOUS COLOR. INCISION NO SIGNS OF INFECTION. INSIDE OF MOUTH IS SWOLLEN AND PINK, NO DRAINAGE SEEN. DENIES ANY OTHER ISSUES. CALL LIGHT IN REACH.
[2020-02-21 05:17] LABS: BASOPHILS ABSOLUTE AUTO 0.02 K/mm3 (0.00-0.23); BASOPHILS PERCENT AUTO 0 % (0-2); EOSINOPHILS ABSOLUTE AUTO 0.09 K/mm3 (0.00-0.68); EOSINOPHILS PERCENT AUTO 1 % (0-6); Hematocrit 27.7 % (33.0-51.0); Hemoglobin 8.8 g/dL (11.5-16.0); IMMATURE GRAN ABSOLUTE AUTO 0.09 K/mm3 (0.00-0.10); IMMATURE GRAN PERCENT AUTO 1 % (0-1); LYMPHOCYTES ABSOLUTE AUTO 1.59 K/mm3 (0.84-5.20); LYMPHOCYTES PERCENT AUTO 20 % (21-46); MONOCYTES ABSOLUTE AUTO 0.96 K/mm3 (0.16-1.47); MONOCYTES PERCENT AUTO 12 % (4-13); Mean Corpuscular HGB 29.2 pg (26.0-34.0); Mean Corpuscular HGB Conc 31.8 g/dL (31.5-36.5); Mean Corpuscular Volume 92 fL (80-100); Mean Platelet Volume 8.9 fL (9.1-12.4); NEUTROPHILS ABSOLUTE AUTO 5.34 K/mm3 (1.96-9.15); NEUTROPHILS PERCENT AUTO 66 % (41-73); Platelet Count 360 K/mm3 (150-400); RDW Standard Deviation 47.2 fL (35.1-46.3); Red Blood Cell Count 3.01 M/mm3 (3.80-5.20); White Blood Cell Count 8.09 K/mm3 (4.00-11.30)
[2020-02-21 05:55] LABS: Anion Gap 5 mmol/L (6-16); Blood Urea Nitrogen 7 mg/dL (8-24); Bun/Creatinine Ratio 13.8 (12.0-20.0); CO2, Blood 28 mmol/L (21-32); Calcium, Blood 8.7 mg/dL (8.5-10.1); Chloride, Blood 103 mmol/L (98-108); Creatinine, Blood 0.51 mg/dL (0.40-1.00); Glomerular Filtration Rate >60 (60-); Glucose, Blood 98 mg/dL (70-99); Potassium, Blood 3.7 mmol/L (3.5-5.5); Sodium, Blood 136 mmol/L (136-145)
--- NOTE | 2020-02-21 06:27 | NUR ---
SHIFT SUMMARY: KAYLEE STILL HAS RACING OF THE MIND WHEN SHE GOES TO SLEEP. SHE IS JUST ANXIOUS ABOUT WHAT SHE WILL DO WHEN SHE GOES HOME, OR IF SHE GOES TO REHAB. SAT WITH HER EXPLAINING THE PROCESS OF HOME HEALTH AND HOW THEY WORK. EXPLAINED THE DIFFERENCE BETWEEN REHAB AND HOME HEALTH. [employer] DID NOT WORK FOR HER. PAIN MEDS GIVEN X2 LAST NIGHT, THIS HELPED HER TO SLEEP JUST A LITTLE BIT. CHANGED DRESSING TO DRAINAGE TUBE. INCISION STILL LOOKING GOOD AND STITCHES INTACT. HEATING PAD TO BACK. INDEPENDENT TO THE BSC. IV STILL INFUSING WELL. VS WNL, AFEBRILE. NO OTHER CHANGES TO NOTE. CALL LIGHT IN REACH.
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
[2020-02-22 04:57] LABS: BASOPHILS PERCENT AUTO 0 % (0-2); EOSINOPHILS PERCENT AUTO 0 % (0-6); Hematocrit 30.6 % (33.0-51.0); Hemoglobin 9.9 g/dL (11.5-16.0); IMMATURE GRAN ABSOLUTE AUTO 0.04 K/mm3 (0.00-0.10); IMMATURE GRAN PERCENT AUTO 1 % (0-1); LYMPHOCYTES ABSOLUTE AUTO 0.54 K/mm3 (0.84-5.20); LYMPHOCYTES PERCENT AUTO 14 % (21-46); MONOCYTES ABSOLUTE AUTO 0.04 K/mm3 (0.16-1.47); MONOCYTES PERCENT AUTO 1 % (4-13); Mean Corpuscular HGB 29.1 pg (26.0-34.0); Mean Corpuscular HGB Conc 32.4 g/dL (31.5-36.5); Mean Corpuscular Volume 90 fL (80-100); Mean Platelet Volume 8.9 fL (9.1-12.4); NEUTROPHILS ABSOLUTE AUTO 3.15 K/mm3 (1.96-9.15); NEUTROPHILS PERCENT AUTO 84 % (41-73); Platelet Count 373 K/mm3 (150-400); RDW Coefficient Variation 13.6 % (11.7-14.2); RDW Standard Deviation 44.9 fL (35.1-46.3); White Blood Cell Count 3.77 K/mm3 (4.00-11.30)
[2020-02-22 05:14] LABS: Anion Gap 4 mmol/L (6-16); Blood Urea Nitrogen 8 mg/dL (8-24); Bun/Creatinine Ratio 17.8 (12.0-20.0); CO2, Blood 28 mmol/L (21-32); Calcium, Blood 8.9 mg/dL (8.5-10.1); Chloride, Blood 103 mmol/L (98-108); Creatinine, Blood 0.45 mg/dL (0.40-1.00); Glomerular Filtration Rate >60 (60-); Glucose, Blood 161 mg/dL (70-99); Sodium, Blood 135 mmol/L (136-145)
--- NOTE | 2020-02-22 06:16 | NUR ---
02/22/20 0600 REILLY DRAIN TO CHIN INTACT AND DRESSINGS CHANGED TWICE THIS SHIFT. VITALS STABLE. TAKING ORAL FLUIDS WITHOUT PROBLEMS. HAS CALLED FOR HELP TO BSC FOR VOIDINGS. SAT UP IN CHAIR ABOUT 0230 SHE WAS TIRED OF THE BED. WORRIED ABOUT DAUGHTER COMING TO VISIT FROM [place]. PT ANXIOUS THAT SHE MAY GET COVID FROM DAUGHTER, EVEN THOUGH DAUGHTER DOES NOT HAVE COVID. SIGN PUT ON DOOR PER PT REQUEST TO LIMIT VISITORS.
--- NOTE | 2020-02-22 09:17 | NUR ---
PATIENT REQUESTING A REFERRAL FROM THE DOCTOR FOR AN EMERGENCY DENTIST. WILL SPEAK WITH THE PATIENT AND CHECK IN WITH DR. PEÑA.
[2020-02-22] MEDS ORDERED: PERIDEX15 ML PO (13:18)
[2020-02-22] MEDS ORDERED: LACTOBACILLUS1 EAC4 PO (13:18)
[2020-02-22] MEDS ORDERED: DEXA4 PO (13:19)
[2020-02-22] MEDS ORDERED: MOXI400 PO (13:19)
--- NOTE | 2020-02-22 15:00 | NUR ---
DISCHARGE SUMMARY PATIENT IS PLEASANT,A LERT AND ORIENTGED. DAUGHTER IN THE ROOM AND ALL DISCHARGE INSTRUCTIONS GIVEN TO THE PATIENT AND HER DAUGHTER. PATIENT'S FAMILY EDUCATED ON HOW TO PACK THE PATIENT'S WOUND AND MEDICAL FLOOR NUMBER HIGHLIGHTED IN CASE OF ANY QUESTIONS. ALL FOLLOW UPS WERE MADE PRIOR TO DISCHARGE PATIENT HAS THESE IN HER BOOK. PATIENT AND FAMILY PLEASED WITH AMOUNT OF TEACHING AND THE DAUGHTER WAS ABLE TO REPAC THE PATIENT'S WOUND PRIOR TO DISCHARGE. IV'S REMOVED, ALL MEDICATIONS SPOKEN WITH THE PATIENT ABOUT. MEDICATION ORDERS SENT TO PHARMACY OF CHOICE.
== END 2020-02-22 15:14 | disposition home or self-care (01) | DRG 158 ==
LOC: ER 03:27 → MEDS 06:24
PROVIDERS: Emergency Medicine; Family Medicine; Internal Medicine; Pharmacist; ADMIT Family Medicine
PROC: 0J913ZX Drainage of Face Subcutaneous Tissue and Fascia, Percutaneous Approach, Diagnostic (ICD-10-PCS; principal; 2020-02-12)
PROC: 0J913ZX Drainage of Face Subcutaneous Tissue and Fascia, Percutaneous Approach, Diagnostic (ICD-10-PCS; 2020-02-14)
DX: K04.7 Periapical abscess without sinus (principal); K12.2 Cellulitis and abscess of mouth; E87.1 Hypo-osmolality and hyponatremia; K21.9 Gastro-esophageal reflux disease without esophagitis; I10 Essential (primary) hypertension; M27.2 Inflammatory conditions of jaws; F32.9 Major depressive disorder, single episode, unspecified; Z20.828 Contact with and (suspected) exposure to other viral communicable diseases
CPT/HCPCS: 36415; 70487; 80048; 80053; 80202; 82533; 83605; 83735; 83880; 83930; 83935; 84300; 84439; 84443; 85025; 85651; 86140; 87040; 87070; 87075; 87076; 87185; 87205; 87493; 94760; 96365; 97116; 97162; 97530; 99284-25; A9270; A9270-GY; J0330; J1100; J1170; J1650; J1885; J2250; J2405; J2704; J3010; J3370; J3480; J7030; J7050; J7120; Q0177; Q9967; U0002

== ENCOUNTER → 2020-03-14 | Outpatient (CLI) | payer MEDICARE, BC ==
[~2020-03-14] MED LIST changes: +DEXA4 PO; +LACTOBACILLUS1 EAC4 PO; +MOXI400 PO; +PERIDEX15 ML PO
[2020-03-14 13:20] LABS: BASOPHILS ABSOLUTE AUTO 0.04 K/mm3 (0.00-0.23); BASOPHILS PERCENT AUTO 1 % (0-2); EOSINOPHILS ABSOLUTE AUTO 0.12 K/mm3 (0.00-0.68); EOSINOPHILS PERCENT AUTO 3 % (0-6); Hematocrit 32.9 % (33.0-51.0); Hemoglobin 10.6 g/dL (11.5-16.0); IMMATURE GRAN ABSOLUTE AUTO 0.04 K/mm3 (0.00-0.10); IMMATURE GRAN PERCENT AUTO 1 % (0-1); LYMPHOCYTES ABSOLUTE AUTO 0.76 K/mm3 (0.84-5.20); LYMPHOCYTES PERCENT AUTO 20 % (21-46); MONOCYTES ABSOLUTE AUTO 0.43 K/mm3 (0.16-1.47); MONOCYTES PERCENT AUTO 11 % (4-13); Mean Corpuscular HGB Conc 32.2 g/dL (31.5-36.5); Mean Corpuscular Volume 90 fL (80-100); Mean Platelet Volume 9.5 fL (9.1-12.4); NEUTROPHILS ABSOLUTE AUTO 2.49 K/mm3 (1.96-9.15); NEUTROPHILS PERCENT AUTO 64 % (41-73); Platelet Count 197 K/mm3 (150-400); RDW Coefficient Variation 15.1 % (11.7-14.2); RDW Standard Deviation 49.8 fL (35.1-46.3); Red Blood Cell Count 3.66 M/mm3 (3.80-5.20); White Blood Cell Count 3.88 K/mm3 (4.00-11.30)
[2020-03-14 13:22] LABS: Anion Gap 10 mmol/L (6-16); Blood Urea Nitrogen 11 mg/dL (8-24); Bun/Creatinine Ratio 13.3 (12.0-20.0); CO2, Blood 25 mmol/L (21-32); Chloride, Blood 100 mmol/L (98-108); Creatinine, Blood 0.83 mg/dL (0.40-1.00); Glomerular Filtration Rate >60 (60-); Glucose, Blood 90 mg/dL (70-99); Potassium, Blood 4.4 mmol/L (3.5-5.5); Sodium, Blood 135 mmol/L (136-145)
== END | disposition home or self-care (01) ==
LOC: LAB SHORT 13:11 → LAB EV 13:11
PROVIDERS: Physician Assistant Surgical
DX: R42 Dizziness and giddiness (principal)
CPT/HCPCS: 80048; 85025

== ENCOUNTER → 2020-03-15 | Outpatient (CLI) | payer MEDICARE, BC ==
[2020-03-15 13:36] LABS: BASOPHILS ABSOLUTE AUTO 0.03 K/mm3 (0.00-0.23); BASOPHILS PERCENT AUTO 1 % (0-2); EOSINOPHILS ABSOLUTE AUTO 0.11 K/mm3 (0.00-0.68); EOSINOPHILS PERCENT AUTO 3 % (0-6); Hematocrit 27.5 % (33.0-51.0); IMMATURE GRAN ABSOLUTE AUTO 0.04 K/mm3 (0.00-0.10); IMMATURE GRAN PERCENT AUTO 1 % (0-1); LYMPHOCYTES ABSOLUTE AUTO 0.75 K/mm3 (0.84-5.20); LYMPHOCYTES PERCENT AUTO 21 % (21-46); MONOCYTES ABSOLUTE AUTO 0.53 K/mm3 (0.16-1.47); MONOCYTES PERCENT AUTO 15 % (4-13); Mean Corpuscular HGB 29.8 pg (26.0-34.0); Mean Corpuscular HGB Conc 32.7 g/dL (31.5-36.5); Mean Corpuscular Volume 91 fL (80-100); Mean Platelet Volume 9.3 fL (9.1-12.4); NEUTROPHILS ABSOLUTE AUTO 2.16 K/mm3 (1.96-9.15); NEUTROPHILS PERCENT AUTO 60 % (41-73); Platelet Count 169 K/mm3 (150-400); RDW Coefficient Variation 15.2 % (11.7-14.2); RDW Standard Deviation 50.1 fL (35.1-46.3); Red Blood Cell Count 3.02 M/mm3 (3.80-5.20); White Blood Cell Count 3.62 K/mm3 (4.00-11.30)
[2020-03-15 13:42] LABS: Anion Gap 9 mmol/L (6-16); Blood Urea Nitrogen 7 mg/dL (8-24); Bun/Creatinine Ratio 7.7 (12.0-20.0); CO2, Blood 25 mmol/L (21-32); Calcium, Blood 8.1 mg/dL (8.5-10.1); Chloride, Blood 102 mmol/L (98-108); Creatinine, Blood 0.91 mg/dL (0.40-1.00); Glomerular Filtration Rate >60 (60-); Glucose, Blood 101 mg/dL (70-99); Potassium, Blood 4.3 mmol/L (3.5-5.5); Sodium, Blood 136 mmol/L (136-145)
== END | disposition home or self-care (01) ==
LOC: LAB SHORT 13:25 → LAB EV 13:25
PROVIDERS: Physician Assistant Surgical
DX: M62.81 Muscle weakness (generalized) (principal)
CPT/HCPCS: 80048; 85025

== ENCOUNTER → 2020-03-17 | Outpatient (CLI) | payer MEDICARE, BC ==
[2020-03-17 13:44] LABS: BASOPHILS ABSOLUTE AUTO 0.04 K/mm3 (0.00-0.23); BASOPHILS PERCENT AUTO 1 % (0-2); EOSINOPHILS ABSOLUTE AUTO 0.13 K/mm3 (0.00-0.68); EOSINOPHILS PERCENT AUTO 3 % (0-6); Hematocrit 32.2 % (33.0-51.0); Hemoglobin 10.4 g/dL (11.5-16.0); IMMATURE GRAN ABSOLUTE AUTO 0.05 K/mm3 (0.00-0.10); IMMATURE GRAN PERCENT AUTO 1 % (0-1); LYMPHOCYTES ABSOLUTE AUTO 0.89 K/mm3 (0.84-5.20); LYMPHOCYTES PERCENT AUTO 21 % (21-46); MONOCYTES ABSOLUTE AUTO 0.51 K/mm3 (0.16-1.47); MONOCYTES PERCENT AUTO 12 % (4-13); Mean Corpuscular HGB 29.5 pg (26.0-34.0); Mean Corpuscular HGB Conc 32.3 g/dL (31.5-36.5); Mean Corpuscular Volume 91 fL (80-100); Mean Platelet Volume 9.1 fL (9.1-12.4); NEUTROPHILS ABSOLUTE AUTO 2.59 K/mm3 (1.96-9.15); NEUTROPHILS PERCENT AUTO 62 % (41-73); Platelet Count 210 K/mm3 (150-400); RDW Coefficient Variation 15.6 % (11.7-14.2); RDW Standard Deviation 51.8 fL (35.1-46.3); Red Blood Cell Count 3.53 M/mm3 (3.80-5.20); White Blood Cell Count 4.21 K/mm3 (4.00-11.30)
[2020-03-17 14:05] LABS: Alanine Aminotransfer (ALT/SGP 46 U/L (12-78); Albumin, Blood 3.7 g/dL (3.4-5.0); Albumin/Globulin Ratio 1.3 (0.8-1.8); Alk Phos 88 U/L (40-126); Anion Gap 8 mmol/L (6-16); Aspartate Aminotrans (AST/SGOT 33 U/L (12-37); Bilirubin, Total 0.6 mg/dL (0.1-1.0); Blood Urea Nitrogen 7 mg/dL (8-24); Bun/Creatinine Ratio 12.1 (12.0-20.0); CO2, Blood 27 mmol/L (21-32); Calcium, Blood 8.9 mg/dL (8.5-10.1); Chloride, Blood 103 mmol/L (98-108); Creatinine, Blood 0.58 mg/dL (0.40-1.00); Globulin, Blood 2.9 g/dL (2.2-4.0); Glomerular Filtration Rate >60 (60-); Glucose, Blood 96 mg/dL (70-99); Potassium, Blood 3.9 mmol/L (3.5-5.5); Sodium, Blood 138 mmol/L (136-145); Total Protein, Blood 6.6 g/dL (6.4-8.2)
== END | disposition home or self-care (01) ==
LOC: LAB SHORT 13:39 → LAB EV 13:39
PROVIDERS: Physician Assistant Medical
DX: R53.83 Other fatigue (principal); R60.9 Edema, unspecified
CPT/HCPCS: 80053; 83880; 84443; 85025

== ENCOUNTER → 2020-05-29 | Outpatient (CLI) | payer MEDICARE, BC | END | disposition home or self-care (01) | LOC: LAB SHORT 12:10 | DX: N39.0 Urinary tract infection, site not specified (principal) | CPT/HCPCS: 87086 ==

== ENCOUNTER → 2020-12-02 | Outpatient (CLI) | payer MEDICARE, BC ==
[2020-12-02 13:35] LABS: Source, Urine Voided
[2020-12-02 13:37] LABS: BASOPHILS ABSOLUTE AUTO 0.03 K/mm3 (0.00-0.23); BASOPHILS PERCENT AUTO 1 % (0-2); EOSINOPHILS ABSOLUTE AUTO 0.05 K/mm3 (0.00-0.68); EOSINOPHILS PERCENT AUTO 1 % (0-6); Hematocrit 33.7 % (33.0-51.0); Hemoglobin 11.9 g/dL (11.5-16.0); IMMATURE GRAN ABSOLUTE AUTO 0.03 K/mm3 (0.00-0.10); IMMATURE GRAN PERCENT AUTO 1 % (0-1); LYMPHOCYTES ABSOLUTE AUTO 1.02 K/mm3 (0.84-5.20); LYMPHOCYTES PERCENT AUTO 17 % (21-46); MONOCYTES ABSOLUTE AUTO 0.43 K/mm3 (0.16-1.47); MONOCYTES PERCENT AUTO 7 % (4-13); Mean Corpuscular HGB 30.7 pg (26.0-34.0); Mean Corpuscular HGB Conc 35.3 g/dL (31.5-36.5); Mean Corpuscular Volume 87 fL (80-100); Mean Platelet Volume 8.8 fL (9.1-12.4); NEUTROPHILS ABSOLUTE AUTO 4.41 K/mm3 (1.96-9.15); NEUTROPHILS PERCENT AUTO 74 % (41-73); Platelet Count 230 K/mm3 (150-400); RDW Coefficient Variation 12.4 % (11.7-14.2); RDW Standard Deviation 39.5 fL (35.1-46.3); Red Blood Cell Count 3.87 M/mm3 (3.80-5.20); White Blood Cell Count 5.97 K/mm3 (4.00-11.30)
[2020-12-02 13:46] LABS: Bacteria Not Seen /hpf; Squamous Epithelial Cells Rare /hpf (Few); White Blood Cells, Urine Not Seen /hpf (0-5)
[2020-12-02 13:56] LABS: Alanine Aminotransfer (ALT/SGP 30 U/L (12-78); Albumin, Blood 4.4 g/dL (3.4-5.0); Albumin/Globulin Ratio 1.4 (0.8-1.8); Alk Phos 74 U/L (40-126); Anion Gap 8 mmol/L (6-16); Aspartate Aminotrans (AST/SGOT 26 U/L (12-37); Blood Urea Nitrogen 22 mg/dL (8-24); Bun/Creatinine Ratio 29.3 (12.0-20.0); CO2, Blood 26 mmol/L (21-32); Calcium, Blood 9.6 mg/dL (8.5-10.1); Chloride, Blood 87 mmol/L (98-108); Creatinine, Blood 0.75 mg/dL (0.40-1.00); Globulin, Blood 3.2 g/dL (2.2-4.0); Glomerular Filtration Rate >60 (60-); Glucose, Blood 102 mg/dL (70-99); Potassium, Blood 4.9 mmol/L (3.5-5.5); Sodium, Blood 121 mmol/L (136-145); Thyroid Stimulating Hormone 2.259 uIU/mL (0.360-4.800); Total Protein, Blood 7.6 g/dL (6.4-8.2)
== END | disposition home or self-care (01) ==
LOC: LAB SHORT 13:32
PROVIDERS: Physician Assistant Medical
DX: E87.1 Hypo-osmolality and hyponatremia (principal); R53.83 Other fatigue
CPT/HCPCS: 80053; 81015; 84300; 84443; 85025

== ENCOUNTER → 2020-12-22 | Outpatient (CLI) | payer MEDICARE, BC | LOC: LAB SHORT 15:52 → LAB 15:52 | DX: D48.5 Neoplasm of uncertain behavior of skin (principal); Z88.0 Allergy status to penicillin; Z88.2 Allergy status to sulfonamides; Z88.6 Allergy status to analgesic agent | CPT/HCPCS: 88305 ==

== ENCOUNTER → 2021-03-24 | Outpatient (CLI) | payer MEDICARE, BC | LOC: LAB 15:06 → LAB SHORT 15:06 | DX: D48.5 Neoplasm of uncertain behavior of skin (principal); Z88.2 Allergy status to sulfonamides; Z88.0 Allergy status to penicillin; Z88.5 Allergy status to narcotic agent | CPT/HCPCS: 88305 ==

== ENCOUNTER → 2021-04-13 | Outpatient (CLI) | payer MEDICARE, BC | END | disposition home or self-care (01) | LOC: LAB SHORT 18:50 | DX: N39.0 Urinary tract infection, site not specified (principal) | CPT/HCPCS: 87077; 87086; 87186 ==

== ENCOUNTER → 2021-05-08 | Outpatient (CLI) | payer MEDICARE, BC | END | disposition home or self-care (01) | LOC: LAB 10:24 → LAB SHORT 10:24 | DX: N39.0 Urinary tract infection, site not specified (principal) | CPT/HCPCS: 87077; 87086; 87186 ==

== ENCOUNTER 2021-07-07 05:08 | Day surgery (SDC) | payer MEDICARE, BC ==
--- NOTE | 2021-07-07 10:05 | NUR ---
CORTROSYN WAS GIVEN IM IN R SHOULDER.
[2021-07-07] MEDS ORDERED: ESTRADIOL42.5 GM VAG (12:21)
[2021-07-07] MEDS ORDERED: IRBE150 PO (12:41)
[2021-07-07] MEDS ORDERED: OMEP20ER PO (12:42)
[2021-07-07] MEDS ORDERED: SPIRIVA RESPIMAT4 G3 INH (12:44)
--- NOTE | 2021-07-07 13:32 | NUR ---
BLOOD DRAWN FROM IV EACH TIME.
== END 2021-07-07 11:19 | disposition home or self-care (01) ==
LOC: ATC 05:08
DX: E27.40 Unspecified adrenocortical insufficiency (principal); I10 Essential (primary) hypertension
CPT/HCPCS: 80400; 82533; J0834

== ENCOUNTER → 2021-07-16 | Outpatient (CLI) | payer MEDICARE, BC ==
[~2021-07-16] MED LIST changes: +ESTRADIOL42.5 GM VAG; +IRBE150 PO; +OMEP20ER PO; +SPIRIVA RESPIMAT4 G3 INH
== END | disposition home or self-care (01) ==
LOC: LAB SHORT 15:08
DX: C44.729 Squamous cell carcinoma of skin of left lower limb, including hip (principal); I87.2 Venous insufficiency (chronic) (peripheral)
CPT/HCPCS: 88305

== ENCOUNTER 2021-08-09 07:21 | Emergency (ER) | payer MEDICARE, BC ==
[~2021-08-09] VITALS: Ht 157.5 cm; Wt 72.6 kg
[2021-08-09 08:43] LABS: BASOPHILS ABSOLUTE AUTO 0.03 K/mm3 (0.00-0.23); BASOPHILS PERCENT AUTO 0 % (0-2); EOSINOPHILS ABSOLUTE AUTO 0.02 K/mm3 (0.00-0.68); EOSINOPHILS PERCENT AUTO 0 % (0-6); Hematocrit 34.5 % (33.0-51.0); Hemoglobin 11.5 g/dL (11.5-16.0); IMMATURE GRAN ABSOLUTE AUTO 0.05 K/mm3 (0.00-0.10); IMMATURE GRAN PERCENT AUTO 1 % (0-1); LYMPHOCYTES ABSOLUTE AUTO 0.87 K/mm3 (0.84-5.20); LYMPHOCYTES PERCENT AUTO 9 % (21-46); MONOCYTES ABSOLUTE AUTO 0.45 K/mm3 (0.16-1.47); MONOCYTES PERCENT AUTO 5 % (4-13); Mean Corpuscular HGB 29.4 pg (26.0-34.0); Mean Corpuscular HGB Conc 33.3 g/dL (31.5-36.5); Mean Corpuscular Volume 88 fL (80-100); Mean Platelet Volume 9.4 fL (9.1-12.4); NEUTROPHILS PERCENT AUTO 85 % (41-73); Platelet Count 234 K/mm3 (150-400); RDW Coefficient Variation 12.4 % (11.7-14.2); RDW Standard Deviation 39.8 fL (35.1-46.3); Red Blood Cell Count 3.91 M/mm3 (3.80-5.20); White Blood Cell Count 9.62 K/mm3 (4.00-11.30)
[2021-08-09] MEDS ORDERED: OMEP20ER PO (08:43)
[2021-08-09] MEDS ORDERED: IRBE150 PO (08:44)
[2021-08-09] MEDS ORDERED: SPIR25 PO (08:44)
[2021-08-09] MEDS ORDERED: NEBI5 PO (08:44)
[2021-08-09] MEDS ORDERED: AMLO5 PO (08:44)
[2021-08-09] MEDS ORDERED: ASPI81CH PO (08:44)
[2021-08-09] MEDS ORDERED: ATOR40TA PO (08:45)
[2021-08-09] MEDS ORDERED: HYDR1TAB94 PO (08:45)
[2021-08-09 09:01] LABS: Alanine Aminotransfer (ALT/SGP 22 U/L (12-78); Albumin, Blood 4.1 g/dL (3.4-5.0); Albumin/Globulin Ratio 1.3 (0.8-1.8); Alk Phos 73 U/L (50-136); Anion Gap 9 mmol/L (6-16); Aspartate Aminotrans (AST/SGOT 21 U/L (12-37); Bilirubin, Total 1.2 mg/dL (0.1-1.0); Blood Urea Nitrogen 13 mg/dL (8-24); Bun/Creatinine Ratio 25.6 (12.0-20.0); CO2, Blood 26 mmol/L (21-32); Calcium, Blood 9.4 mg/dL (8.5-10.1); Chloride, Blood 90 mmol/L (98-108); Creatinine, Blood 0.51 mg/dL (0.40-1.00); Globulin, Blood 3.1 g/dL (2.2-4.0); Glomerular Filtration Rate >60 (60-); Glucose, Blood 115 mg/dL (70-99); Potassium, Blood 4.3 mmol/L (3.5-5.5); Sodium, Blood 125 mmol/L (136-145); Total Protein, Blood 7.2 g/dL (6.4-8.2)
== END 2021-08-09 09:45 | disposition home or self-care (01) ==
LOC: ER 07:21
PROVIDERS: Emergency Medicine
DX: E87.1 Hypo-osmolality and hyponatremia (principal)
CPT/HCPCS: 36415; 80053; 85025; 99284

== ENCOUNTER → 2021-08-11 | Outpatient (CLI) | payer MEDICARE, BC ==
[~2021-08-11] MED LIST changes: +AMLO5 PO; +HYDR1TAB94 PO
[2021-08-11 09:44] LABS: BASOPHILS ABSOLUTE AUTO 0.03 K/mm3 (0.00-0.23); BASOPHILS PERCENT AUTO 0 % (0-2); EOSINOPHILS ABSOLUTE AUTO 0.05 K/mm3 (0.00-0.68); EOSINOPHILS PERCENT AUTO 1 % (0-6); Hemoglobin 12.3 g/dL (11.5-16.0); IMMATURE GRAN ABSOLUTE AUTO 0.06 K/mm3 (0.00-0.10); IMMATURE GRAN PERCENT AUTO 1 % (0-1); LYMPHOCYTES ABSOLUTE AUTO 0.97 K/mm3 (0.84-5.20); LYMPHOCYTES PERCENT AUTO 12 % (21-46); MONOCYTES PERCENT AUTO 10 % (4-13); Mean Corpuscular HGB Conc 35.1 g/dL (31.5-36.5); Mean Corpuscular Volume 85 fL (80-100); NEUTROPHILS ABSOLUTE AUTO 6.12 K/mm3 (1.96-9.15); NEUTROPHILS PERCENT AUTO 76 % (41-73); Platelet Count 263 K/mm3 (150-400); RDW Coefficient Variation 12.5 % (11.7-14.2); RDW Standard Deviation 38.4 fL (35.1-46.3); White Blood Cell Count 8.03 K/mm3 (4.00-11.30)
[2021-08-11 10:07] LABS: Alanine Aminotransfer (ALT/SGP 31 U/L (12-78); Albumin, Blood 4.4 g/dL (3.4-5.0); Albumin/Globulin Ratio 1.5 (0.8-1.8); Alk Phos 74 U/L (40-126); Anion Gap 8 mmol/L (6-16); Aspartate Aminotrans (AST/SGOT 30 U/L (12-37); Blood Urea Nitrogen 13 mg/dL (8-24); CO2, Blood 25 mmol/L (21-32); Calcium, Blood 9.6 mg/dL (8.5-10.1); Chloride, Blood 87 mmol/L (98-108); Creatinine, Blood 0.62 mg/dL (0.40-1.00); Glomerular Filtration Rate >60 (60-); Glucose, Blood 105 mg/dL (70-99); Potassium, Blood 4.3 mmol/L (3.5-5.5); Sodium, Blood 120 mmol/L (136-145); Thyroid Stimulating Hormone 1.469 uIU/mL (0.360-4.800); Total Protein, Blood 7.4 g/dL (6.4-8.2)
== END ==
LOC: LAB SHORT 09:40
PROVIDERS: Physician Assistant
DX: E87.1 Hypo-osmolality and hyponatremia (principal); R53.83 Other fatigue; R82.79 Other abnormal findings on microbiological examination of urine
CPT/HCPCS: 80053; 84443; 85025; 87077; 87086; 87186

== ENCOUNTER → 2021-08-31 | Outpatient (CLI) | payer MEDICARE, BC ==
[2021-08-31 13:33] LABS: Anion Gap 6 mmol/L (6-16); Blood Urea Nitrogen 22 mg/dL (8-24); Bun/Creatinine Ratio 30.1 (12.0-20.0); CO2, Blood 30 mmol/L (21-32); Calcium, Blood 10.3 mg/dL (8.5-10.1); Chloride, Blood 99 mmol/L (98-108); Creatinine, Blood 0.73 mg/dL (0.40-1.00); Glomerular Filtration Rate >60 (60-); Glucose, Blood 92 mg/dL (70-99); Potassium, Blood 4.5 mmol/L (3.5-5.5); Sodium, Blood 135 mmol/L (136-145)
== END | disposition home or self-care (01) ==
LOC: LAB SHORT 13:14 → LAB 13:14
PROVIDERS: Family Medicine
DX: N39.0 Urinary tract infection, site not specified (principal)
CPT/HCPCS: 80048; 87077; 87086; 87186

== ENCOUNTER → 2021-10-13 | Outpatient (CLI) | payer MEDICARE, BC | END | disposition home or self-care (01) | LOC: PLD 07:41 → LAB 07:41 → LAB SHORT 07:41 | DX: D48.5 Neoplasm of uncertain behavior of skin (principal) | CPT/HCPCS: 88305 ==

== ENCOUNTER → 2021-11-04 | Outpatient (CLI) | payer MEDICARE, BC | END | disposition home or self-care (01) | LOC: LAB SHORT 05:07 → LAB 05:07 | DX: E87.1 Hypo-osmolality and hyponatremia (principal) | CPT/HCPCS: 81050 ==

== ENCOUNTER → 2022-10-26 | Outpatient (CLI) | payer MEDICARE, BC | END | disposition home or self-care (01) | LOC: LAB SHORT 08:22 → PLD 08:22 | DX: D22.39 Melanocytic nevi of other parts of face (principal) | CPT/HCPCS: 88305 ==

== ENCOUNTER → 2023-01-26 | Outpatient (CLI) | payer MEDICARE, BC | LOC: LAB 12:51 → LAB SHORT 12:51 | PROVIDERS: Hospitalist | DX: M54.12 Radiculopathy, cervical region (principal); G89.4 Chronic pain syndrome; Z79.899 Other long term (current) drug therapy | CPT/HCPCS: G0480 ==

== ENCOUNTER → 2023-02-24 | Outpatient (CLI) | payer MEDICARE, BC ==
[2023-02-24 12:28] LABS: BASOPHILS ABSOLUTE AUTO 0.03 K/mm3 (0.00-0.23); BASOPHILS PERCENT AUTO 1 % (0-2); EOSINOPHILS ABSOLUTE AUTO 0.05 K/mm3 (0.00-0.68); EOSINOPHILS PERCENT AUTO 1 % (0-6); Hemoglobin 12.6 g/dL (11.5-16.0); IMMATURE GRAN ABSOLUTE AUTO 0.04 K/mm3 (0.00-0.10); IMMATURE GRAN PERCENT AUTO 1 % (0-1); LYMPHOCYTES PERCENT AUTO 21 % (21-46); MONOCYTES ABSOLUTE AUTO 0.45 K/mm3 (0.16-1.47); MONOCYTES PERCENT AUTO 7 % (4-13); Mean Corpuscular HGB 29.9 pg (26.0-34.0); Mean Corpuscular HGB Conc 34.1 g/dL (31.5-36.5); Mean Corpuscular Volume 88 fL (80-100); Mean Platelet Volume 9.5 fL (9.1-12.4); NEUTROPHILS ABSOLUTE AUTO 4.37 K/mm3 (1.96-9.15); NEUTROPHILS PERCENT AUTO 70 % (41-73); Platelet Count 239 K/mm3 (150-400); RDW Coefficient Variation 12.7 % (11.7-14.2); RDW Standard Deviation 40.5 fL (35.1-46.3); Red Blood Cell Count 4.22 M/mm3 (3.80-5.20); White Blood Cell Count 6.24 K/mm3 (4.00-11.30)
[2023-02-24 12:31] LABS: Bun/Creatinine Ratio 23.2 (12.0-20.0); Calcium, Blood 9.4 mg/dL (8.5-10.1); Creatinine, Blood 0.69 mg/dL (0.40-1.00); Potassium, Blood 4.1 mmol/L (3.5-5.5)
== END | disposition home or self-care (01) ==
LOC: LAB 12:24 → LAB SHORT 12:24
PROVIDERS: Physician Assistant
DX: R42 Dizziness and giddiness (principal)
CPT/HCPCS: 80048; 85025

== ENCOUNTER → 2023-02-26 | Outpatient (CLI) | payer MEDICARE, BC ==
[2023-02-26 13:14] LABS: BASOPHILS ABSOLUTE AUTO 0.05 K/mm3 (0.00-0.23); BASOPHILS PERCENT AUTO 1 % (0-2); EOSINOPHILS ABSOLUTE AUTO 0.03 K/mm3 (0.00-0.68); EOSINOPHILS PERCENT AUTO 0 % (0-6); Hematocrit 36.3 % (33.0-51.0); Hemoglobin 12.4 g/dL (11.5-16.0); IMMATURE GRAN ABSOLUTE AUTO 0.06 K/mm3 (0.00-0.10); IMMATURE GRAN PERCENT AUTO 1 % (0-1); LYMPHOCYTES ABSOLUTE AUTO 1.37 K/mm3 (0.84-5.20); LYMPHOCYTES PERCENT AUTO 19 % (21-46); MONOCYTES ABSOLUTE AUTO 0.49 K/mm3 (0.16-1.47); MONOCYTES PERCENT AUTO 7 % (4-13); Mean Corpuscular HGB 30.1 pg (26.0-34.0); Mean Corpuscular HGB Conc 34.2 g/dL (31.5-36.5); Mean Corpuscular Volume 88 fL (80-100); Mean Platelet Volume 9.5 fL (9.1-12.4); NEUTROPHILS ABSOLUTE AUTO 5.32 K/mm3 (1.96-9.15); NEUTROPHILS PERCENT AUTO 73 % (41-73); Platelet Count 227 K/mm3 (150-400); RDW Coefficient Variation 12.5 % (11.7-14.2); RDW Standard Deviation 40.7 fL (35.1-46.3); Red Blood Cell Count 4.12 M/mm3 (3.80-5.20); White Blood Cell Count 7.32 K/mm3 (4.00-11.30)
[2023-02-26 13:35] LABS: Albumin, Blood 4.3 g/dL (3.4-5.0); Albumin/Globulin Ratio 1.3 (0.8-1.8); Bun/Creatinine Ratio 18.3 (12.0-20.0); Calcium, Blood 9.3 mg/dL (8.5-10.1); Creatinine, Blood 0.71 mg/dL (0.40-1.00); Globulin, Blood 3.2 g/dL (2.2-4.0); Potassium, Blood 4.1 mmol/L (3.5-5.5); Thyroid Stimulating Hormone 1.758 uIU/mL (0.360-4.800); Total Protein, Blood 7.5 g/dL (6.4-8.2)
== END | disposition home or self-care (01) ==
LOC: LAB 13:10 → LAB SHORT 13:10
PROVIDERS: Physician Assistant
DX: I10 Essential (primary) hypertension (principal)
CPT/HCPCS: 80053; 84443; 85025

== ENCOUNTER 2023-02-27 07:29 | Emergency (ER) | payer MEDICARE, BC ==
[~2023-02-27] VITALS: Ht 157.5 cm; Wt 74.4 kg
[2023-02-27 08:42] LABS: Source, Urine Clean Catch
[2023-02-27 08:55] LABS: Appearance, Urine Clear (Clear); Bilirubin, Urine Neg (Neg); Blood, Urine Neg (Neg); Color, Urine Yellow (P-Yellow); Glucose Qualitative, Urine Neg (Neg); Ketones, Urine Neg (Neg); Leukocyte Esterase, Urine Neg (Neg); Nitrite, Urine Neg (Neg); Protein, Urine 1+ (Neg); Urobilinogen, Urine NORM (Normal)
[2023-02-27 09:17] LABS: Influenza A, PCR NEGATIVE (NEGATIVE); Influenza B, PCR NEGATIVE (NEGATIVE); Resp Syncytial Virus, PCR NEGATIVE (NEGATIVE); SARS-Cov-2 (COVID-19) PCR, MMC NEGATIVE (NEGATIVE)
[2023-02-27 09:30] LABS: BASOPHILS ABSOLUTE AUTO 0.04 K/mm3 (0.00-0.23); BASOPHILS PERCENT AUTO 1 % (0-2); EOSINOPHILS ABSOLUTE AUTO 0.06 K/mm3 (0.00-0.68); EOSINOPHILS PERCENT AUTO 1 % (0-6); Hemoglobin 12.6 g/dL (11.5-16.0); IMMATURE GRAN ABSOLUTE AUTO 0.03 K/mm3 (0.00-0.10); IMMATURE GRAN PERCENT AUTO 1 % (0-1); LYMPHOCYTES ABSOLUTE AUTO 0.98 K/mm3 (0.84-5.20); LYMPHOCYTES PERCENT AUTO 16 % (21-46); MONOCYTES ABSOLUTE AUTO 0.47 K/mm3 (0.16-1.47); MONOCYTES PERCENT AUTO 8 % (4-13); Mean Corpuscular HGB 29.8 pg (26.0-34.0); Mean Corpuscular HGB Conc 34.1 g/dL (31.5-36.5); Mean Corpuscular Volume 88 fL (80-100); Mean Platelet Volume 9.4 fL (9.1-12.4); NEUTROPHILS ABSOLUTE AUTO 4.47 K/mm3 (1.96-9.15); NEUTROPHILS PERCENT AUTO 74 % (41-73); Platelet Count 238 K/mm3 (150-400); RDW Coefficient Variation 12.6 % (11.7-14.2); RDW Standard Deviation 40.1 fL (35.1-46.3); Red Blood Cell Count 4.23 M/mm3 (3.80-5.20); White Blood Cell Count 6.05 K/mm3 (4.00-11.30)
[2023-02-27 09:54] LABS: Albumin, Blood 4.3 g/dL (3.4-5.0); Albumin/Globulin Ratio 1.3 (0.8-1.8); Bilirubin, Total 0.9 mg/dL (0.1-1.0); Bun/Creatinine Ratio 17.5 (12.0-20.0); Calcium, Blood 9.3 mg/dL (8.5-10.1); Creatinine, Blood 0.57 mg/dL (0.40-1.00); Globulin, Blood 3.2 g/dL (2.2-4.0); Total Protein, Blood 7.5 g/dL (6.4-8.2)
[2023-02-27 13:30] VITALS: BP 178/75
[2023-02-27] MEDS ORDERED: IRBE150 PO (14:33)
== END 2023-02-27 14:15 | disposition home or self-care (01) ==
LOC: ER 07:29
PROVIDERS: Student in an Organized Health Care Education/Training Program
DX: I10 Essential (primary) hypertension (principal); F41.9 Anxiety disorder, unspecified; Z88.0 Allergy status to penicillin; Z88.5 Allergy status to narcotic agent; Z88.2 Allergy status to sulfonamides; Z79.899 Other long term (current) drug therapy; Z79.82 Long term (current) use of aspirin; E78.5 Hyperlipidemia, unspecified
CPT/HCPCS: 0241U; 71046; 71260; 80053; 83880; 84484; 85025; 93005; 93010; 96374-59; 96375-59; 99284-25; A9270; J0360; J1200; Q9967

== ENCOUNTER → 2023-03-28 | Outpatient (CLI) | payer MEDICARE, BC | LOC: LAB SHORT 09:21 → PLD 09:21 | DX: L57.0 Actinic keratosis (principal) | CPT/HCPCS: 88305; 88312 ==

== ENCOUNTER → 2023-04-26 | Outpatient (CLI) | payer MEDICARE, BC | LOC: LAB 11:11 → LAB SHORT 11:11 | DX: N39.0 Urinary tract infection, site not specified (principal) | CPT/HCPCS: 87077; 87086; 87186 ==

== ENCOUNTER → 2023-09-25 | Outpatient (CLI) | payer MEDICARE, BC | END | disposition home or self-care (01) | LOC: LAB SHORT 12:19 → LAB 12:19 | DX: N39.0 Urinary tract infection, site not specified (principal) ==

== ENCOUNTER → 2024-02-01 | Outpatient (CLI) | payer MEDICARE, BC | LOC: LAB 08:28 → LAB SHORT 08:28 | DX: N39.0 Urinary tract infection, site not specified (principal) | CPT/HCPCS: 87077; 87086; 87186 ==

== ENCOUNTER → 2024-02-25 | Outpatient (CLI) | payer MEDICARE, BC ==
[2024-02-25 13:43] LABS: BASOPHILS ABSOLUTE AUTO 0.08 K/mm3 (0.00-0.23); BASOPHILS PERCENT AUTO 1 % (0-2); EOSINOPHILS ABSOLUTE AUTO 0.41 K/mm3 (0.00-0.68); EOSINOPHILS PERCENT AUTO 5 % (0-6); Hematocrit 37.2 % (33.0-51.0); Hemoglobin 12.4 g/dL (11.5-16.0); IMMATURE GRAN ABSOLUTE AUTO 0.06 K/mm3 (0.00-0.10); IMMATURE GRAN PERCENT AUTO 1 % (0-1); LYMPHOCYTES ABSOLUTE AUTO 1.27 K/mm3 (0.84-5.20); LYMPHOCYTES PERCENT AUTO 14 % (21-46); MONOCYTES ABSOLUTE AUTO 1.16 K/mm3 (0.16-1.47); MONOCYTES PERCENT AUTO 13 % (4-13); Mean Corpuscular HGB 28.9 pg (26.0-34.0); Mean Corpuscular HGB Conc 33.3 g/dL (31.5-36.5); Mean Corpuscular Volume 87 fL (80-100); Mean Platelet Volume 8.8 fL (9.1-12.4); NEUTROPHILS ABSOLUTE AUTO 5.96 K/mm3 (1.96-9.15); NEUTROPHILS PERCENT AUTO 67 % (41-73); Platelet Count 314 K/mm3 (150-400); RDW Coefficient Variation 12.9 % (11.7-14.2); RDW Standard Deviation 40.4 fL (35.1-46.3); Red Blood Cell Count 4.29 M/mm3 (3.80-5.20); White Blood Cell Count 8.94 K/mm3 (4.00-11.30)
[2024-02-25 14:00] LABS: Albumin, Blood 3.7 g/dL (3.4-5.0); Albumin/Globulin Ratio 0.9 (0.8-1.8); Bun/Creatinine Ratio 15.6 (12.0-20.0); Calcium, Blood 9.9 mg/dL (8.5-10.1); Creatinine, Blood 0.77 mg/dL (0.40-1.00); Potassium, Blood 4.2 mmol/L (3.5-5.5); Total Protein, Blood 7.7 g/dL (6.4-8.2)
== END | disposition home or self-care (01) ==
LOC: LAB 13:40 → LAB SHORT 13:40
PROVIDERS: Emergency Medicine
DX: R06.02 Shortness of breath (principal)
CPT/HCPCS: 80053; 83880; 84484; 85025; 85379

== ENCOUNTER → 2024-03-23 | Outpatient (CLI) | payer MEDICARE, BC ==
[2024-03-23 10:33] LABS: BASOPHILS ABSOLUTE AUTO 0.07 K/mm3 (0.00-0.23); BASOPHILS PERCENT AUTO 1 % (0-2); EOSINOPHILS ABSOLUTE AUTO 0.08 K/mm3 (0.00-0.68); EOSINOPHILS PERCENT AUTO 1 % (0-6); Hematocrit 37.3 % (33.0-51.0); Hemoglobin 12.5 g/dL (11.5-16.0); IMMATURE GRAN ABSOLUTE AUTO 0.04 K/mm3 (0.00-0.10); IMMATURE GRAN PERCENT AUTO 0 % (0-1); LYMPHOCYTES ABSOLUTE AUTO 1.22 K/mm3 (0.84-5.20); LYMPHOCYTES PERCENT AUTO 12 % (21-46); MONOCYTES ABSOLUTE AUTO 1.26 K/mm3 (0.16-1.47); MONOCYTES PERCENT AUTO 13 % (4-13); Mean Corpuscular HGB 29.2 pg (26.0-34.0); Mean Corpuscular HGB Conc 33.5 g/dL (31.5-36.5); Mean Corpuscular Volume 87 fL (80-100); Mean Platelet Volume 9.3 fL (9.1-12.4); NEUTROPHILS ABSOLUTE AUTO 7.13 K/mm3 (1.96-9.15); NEUTROPHILS PERCENT AUTO 73 % (41-73); Platelet Count 223 K/mm3 (150-400); RDW Coefficient Variation 13.6 % (11.7-14.2); RDW Standard Deviation 42.5 fL (35.1-46.3); Red Blood Cell Count 4.28 M/mm3 (3.80-5.20)
[2024-03-23 10:42] LABS: Albumin, Blood 3.6 g/dL (3.4-5.0); Albumin/Globulin Ratio 0.9 (0.8-1.8); Bilirubin, Total 1.1 mg/dL (0.1-1.0); Bun/Creatinine Ratio 15.7 (12.0-20.0); Calcium, Blood 9.5 mg/dL (8.5-10.1); Creatinine, Blood 0.83 mg/dL (0.40-1.00); Globulin, Blood 3.9 g/dL (2.2-4.0); Potassium, Blood 4.4 mmol/L (3.5-5.5); Total Protein, Blood 7.5 g/dL (6.4-8.2)
== END ==
LOC: LAB 10:27 → LAB SHORT 10:27
PROVIDERS: Emergency Medicine
DX: E87.1 Hypo-osmolality and hyponatremia (principal); N39.0 Urinary tract infection, site not specified
CPT/HCPCS: 80053; 83735; 85025; 87077; 87086; 87186

== ENCOUNTER → 2025-01-31 | Outpatient (CLI) | payer MEDICARE, BC ==
[2025-01-31 12:09] LABS: BASOPHILS ABSOLUTE AUTO 0.06 K/mm3 (0.00-0.23); BASOPHILS PERCENT AUTO 1 % (0-2); EOSINOPHILS ABSOLUTE AUTO 0.11 K/mm3 (0.00-0.68); EOSINOPHILS PERCENT AUTO 2 % (0-6); Hematocrit 33.7 % (33.0-51.0); Hemoglobin 11.2 g/dL (11.5-16.0); IMMATURE GRAN ABSOLUTE AUTO 0.03 K/mm3 (0.00-0.10); IMMATURE GRAN PERCENT AUTO 1 % (0-1); LYMPHOCYTES ABSOLUTE AUTO 1.58 K/mm3 (0.84-5.20); LYMPHOCYTES PERCENT AUTO 24 % (21-46); MONOCYTES ABSOLUTE AUTO 0.44 K/mm3 (0.16-1.47); MONOCYTES PERCENT AUTO 7 % (4-13); Mean Corpuscular HGB Conc 33.2 g/dL (31.5-36.5); Mean Corpuscular Volume 91 fL (80-100); NEUTROPHILS ABSOLUTE AUTO 4.33 K/mm3 (1.96-9.15); NEUTROPHILS PERCENT AUTO 66 % (41-73); NRBC ABSOLUTE 0.00 K/mm3 (0.00-0.02); NRBC Auto 0.0 /100 WBC (0.0-0.2); Platelet Count 223 K/mm3 (150-400); RDW Coefficient Variation 12.9 % (11.7-14.2); RDW Standard Deviation 42.7 fL (35.1-46.3)
[2025-01-31 12:45] LABS: Alanine Aminotransfer (ALT/SGP 26.0 U/L (12-78); Albumin, Blood 4.1 g/dL (3.4-5.0); Albumin/Globulin Ratio 1.4 (0.8-1.8); Anion Gap 9.0 mmol/L (3-11); Aspartate Aminotrans (AST/SGOT 23.0 U/L (12-37); Bilirubin, Total 0.9 mg/dL (0.1-1.0); Blood Urea Nitrogen 22.0 mg/dL (8-24); CO2, Blood 27.0 mmol/L (21-32); Calcium, Blood 9.2 mg/dL (8.5-10.1); Chloride, Blood 101.0 mmol/L (98-108); Creatinine, Blood 0.76 mg/dL (0.40-1.00); Globulin, Blood 2.9 g/dL (2.2-4.0); Glucose, Blood 105.0 mg/dL (70-99); Potassium, Blood 4.2 mmol/L (3.5-5.5); Sodium, Blood 133.0 mmol/L (136-145); Total Protein, Blood 7.0 g/dL (6.4-8.2)
== END ==
LOC: LAB 12:04 → LAB SHORT 12:04
DX: R42 Dizziness and giddiness (principal); N39.0 Urinary tract infection, site not specified; R31.9 Hematuria, unspecified
CPT/HCPCS: 80053; 85025; 87077; 87086; 87186

== ENCOUNTER → 2025-02-09 | Outpatient (CLI) | payer MEDICARE, BC ==
[2025-02-09 13:18] LABS: BASOPHILS ABSOLUTE AUTO 0.05 K/mm3 (0.00-0.23); BASOPHILS PERCENT AUTO 1 % (0-2); EOSINOPHILS ABSOLUTE AUTO 0.16 K/mm3 (0.00-0.68); EOSINOPHILS PERCENT AUTO 2 % (0-6); Hematocrit 34.8 % (33.0-51.0); Hemoglobin 11.7 g/dL (11.5-16.0); IMMATURE GRAN ABSOLUTE AUTO 0.03 K/mm3 (0.00-0.10); IMMATURE GRAN PERCENT AUTO 0 % (0-1); LYMPHOCYTES ABSOLUTE AUTO 1.83 K/mm3 (0.84-5.20); LYMPHOCYTES PERCENT AUTO 25 % (21-46); MONOCYTES ABSOLUTE AUTO 0.62 K/mm3 (0.16-1.47); MONOCYTES PERCENT AUTO 8 % (4-13); Mean Corpuscular HGB Conc 33.6 g/dL (31.5-36.5); Mean Corpuscular Volume 90 fL (80-100); NEUTROPHILS ABSOLUTE AUTO 4.72 K/mm3 (1.96-9.15); NEUTROPHILS PERCENT AUTO 64 % (41-73); NRBC ABSOLUTE 0.00 K/mm3 (0.00-0.02); NRBC Auto 0.0 /100 WBC (0.0-0.2); Platelet Count 241 K/mm3 (150-400); RDW Coefficient Variation 12.8 % (11.7-14.2); RDW Standard Deviation 42.4 fL (35.1-46.3)
[2025-02-09 13:36] LABS: Alanine Aminotransfer (ALT/SGP 28.0 U/L (12-78); Albumin, Blood 4.2 g/dL (3.4-5.0); Albumin/Globulin Ratio 1.4 (0.8-1.8); Anion Gap 13.0 mmol/L (3-11); Aspartate Aminotrans (AST/SGOT 24.0 U/L (12-37); Bilirubin, Total 1.0 mg/dL (0.1-1.0); Blood Urea Nitrogen 20.0 mg/dL (8-24); CO2, Blood 30.0 mmol/L (21-32); Calcium, Blood 9.6 mg/dL (8.5-10.1); Chloride, Blood 96.0 mmol/L (98-108); Creatinine, Blood 0.95 mg/dL (0.40-1.00); Globulin, Blood 3.1 g/dL (2.2-4.0); Glucose, Blood 103.0 mg/dL (70-99); Potassium, Blood 4.2 mmol/L (3.5-5.5); Sodium, Blood 135.0 mmol/L (136-145); Thyroid Stimulating Hormone 2.074 uIU/mL (0.360-4.800); Total Protein, Blood 7.3 g/dL (6.4-8.2)
== END ==
LOC: LAB SHORT 13:13 → LAB 13:13
PROVIDERS: Physician Assistant
DX: N39.0 Urinary tract infection, site not specified (principal); R53.83 Other fatigue
CPT/HCPCS: 80053; 84443; 85025; 87077; 87086; 87186